=== PATIENT | female | born 1955 ===

== ENCOUNTER 2024-02-08 08:13 | Emergency (ER) | payer OTHER, SELFPAY ==
[2024-02-08 08:40] VITALS: BP 103/69; PULSE 84; RESP 16; TEMP 37; O2SAT 99; BMI 24.8
--- NOTE | 2024-02-08 09:14 | ED_ITS ---
HPI - General Adult General Chief complaint: Extremity Problem Stated complaint: L arm pain, L foot pain Time Seen by Provider: 02/08/24 09:08 Source: patient Mode of arrival: ambulatory Limitations: no limitations History of Present Illness ED Provider: Kylee John PA-C HPI narrative: Patient is a 68 year old assigned female at with a history of gout presenting to the emergency department today with left elbow and left foot pain. Patient states that 2 days ago she woke up with left elbow and left great toe pain that has not improved. Patient denies any dizziness, lightheadedness, abdominal pain, nausea, vomiting, fever, chills, blurry vision, double vision, loss of vision, chest pain, difficulty breathing, shortness of breath, back pain, night sweats, pain with urination, increased urinary frequency, increased urinary urgency, blood in her urine or stool, syncope or a near syncopal episode, recent trauma or falls, bowel incontinence, bladder incontinence, or any other complaints at this time. Onset (ago): day(s) (2) Location: left (knee and great toe) Relieving factors: none Exacerbating factors: none Associated symptoms: denies other symptoms Treatments prior to arrival: none Related Data Previous Rx's ?Medication ?Instructions ?Recorded naproxen 500 mg tablet 500 mg PO BID 7 days #14 tabs 02/08/24 prednisone 20 mg tablet 20 mg PO DAILY 7 days #7 tabs 02/08/24 Allergies Allergy/AdvReac Type Severity Reaction Status Date / Time No Known Allergies Allergy Verified 02/08/24 08:41 Review of Systems Constitutional: Constitutional: Reports no additional constitutional complaints, Denies chills, Denies fever(s) and Denies night sweats Eyes: Eyes: Reports no additional eye complaints, Denies blurry vision, Denies change in vision, Denies diplopia, Denies eye discharge, Denies loss of vision and Denies eye pain ENT: Denies dizziness Cardiovascular: Cardiovascular: Reports no additional cardiovascular complaints, Denies chest pain, Denies lightheadedness, Denies Loss of Consciousness and Denies dyspnea Respiratory: Respiratory: Reports no additional respiratory complaints and Denies dyspnea Gastrointestinal: Gastrointestinal: Reports no additional gastrointestinal complaints, Denies abdominal pain, Denies melena, Denies hematochezia, Denies change in bowel habits and Denies change in stool character Genitourinary: Genitourinary: Denies hematuria, Denies urinary frequency, Denies dysuria, Denies urinary incontinence, Denies urinary hesitancy and Denies urinary urgency Musculoskeletal: Musculoskeletal: Reports no additional musculoskeletal complaints, Denies numbness and Denies tingling Comments: left elbow pain and swelling left great toe pain and swelling Neurologic: Denies dizziness, Denies loss of vision, Denies numbness and Denies tingling Psychiatric: Psychiatric: Reports no additional psychiatric complaints Endocrine: Endocrine: Reports no additional endocrine complaints Hematologic/Lymphatic: Hematologic/Lymphatic: Reports no additional hematologic/lymphatic complaints Allergic/Immunologic: Allergic/Immunologic: Reports no additional allergic/immunologic complaints PMFSH Past Medical History Attestation statement: The following information was validated with the patient. Source: old records reviewed and nursing notes reviewed Social History Social History Advance Directives: No Advance Directives Information Provided: Yes Physical Exam ED Vital Signs: Vital Signs - 24 hr 02/08/24 08:40 02/08/24 09:51 Temperature 98.6 F 98.6 F Pulse Rate 84 84 Respiratory Rate 16 16 Blood Pressure 103/69 103/69 Pulse Oximetry 99 99 Oxygen Delivery Method Room Air Room Air BMI result Body Mass Index 24.8 Const General: cooperative, no acute distress, alert and awake Nutritional Appearance: well nourished Orientation/consciousness: patient oriented x3 Limitations: no limitations HENMT Head: Yes normal to inspection and Yes atraumatic Ears: hearing grossly normal bilaterally and external ears normal General nose exam: Normal external nose present, no nasal discharge noted and no epistaxis Face and sinus: Yes normal facial exam, No abrasion and No laceration Mouth: Normal oral and palatal mucosa present, no drooling and no muffled voice Eyes General: appearance normal, both eyes and all related structures Periorbital: periorbital findings normal Eyelids: Yes eyelids normal Conjunctivae: conjunctivae normal Pupils: Equal, round and reactive pupils present EOM: EOMs intact bilaterally Neck Neck: Yes normal visual inspection, Yes full ROM and Yes no lymphadenopathy Chest Chest palpation & inspection: normal inspection of the chest Resp Effort & Inspection: normal respiratory effort and able to speak in complete sentences GI Inspection: Yes normal to inspection Neuro General: patient oriented x3 and moves all extremities Cranial nerves: Yes Equal, round and reactive pupils present Cognition (Neuro): normal cognition Extrem Other: minimal swelling to the left elbow pain with left elbow ROM General: Yes full ROM and Yes capillary refill normal Psych Appearance: grossly normal Mental Status: mental status grossly normal Affect: normal affect Attitude: cooperative Thought process: Normal thought process present Thought content: Normal thought content present Insight: Good insight present (Psych) Medical Decision Making Medical Decision Making MDM Narrative: Patient is a 68 year old assigned female at with a history of gout presenting to the emergency department today with left elbow and left foot pain. Patient's physical exam was as noted in the physical exam portion of this note. Patient's clinical presentation is most consistent with gout. I explained my physical exam findings to the patient. [facility] I stressed the importance of the patient taking her medication as directed (either prescribed or as the over the counter packaging recommends). I stressed the importance of the patient following up with her primary care provider. I stressed the importance of the patient returning to the emergency department immediately if her symptoms were to worsen or if she were to develop any dizziness, shortness of breath, difficulty breathing, chest pain, blurry vision, loss of vision, nausea, vomiting, abdominal pain, fever, chills, back pain, or any other complaints. Patient verbalized agreement and understanding with this treatment plan and discharge. Differential Diagnosis Differential Diagnoses: The differential diagnosis associated with the presentation includes Gout OA RA Admission/Observation Consideration of admission/observation: Escalation of care including admission/observation considered Patient would have been admitted to the hospital had her clinical presentation warranted hospital admission. Prescription Management I considered prescription management with: Pain Medication (patient prescribed pain medication) Discharge Plan Discharge Clinical Impression: Gout Patient Disposition: Home, Self-Care Instructions: Low Purine Diet (ED), Gout (ED) Additional Instructions: Follow up with your primary care provider. Return to the emergency department immediately if your symptoms worsen or if you develop any dizziness, shortness of breath, difficulty breathing, chest pain, blurry vision, loss of vision, nausea, vomiting, abdominal pain, fever, chills, back pain, or any other complaints. Prescriptions: New prednisone 20 mg tablet 20 mg PO DAILY 7 Days Qty: 7 0RF naproxen 500 mg tablet 500 mg PO BID 7 Days Qty: 14 0RF Referrals: [facility] [Provider Group] (Call to establish and follow up with a primary care provider. If you already have a primary care provider, please follow up with them.) [facility] [Provider Group] (Call to establish and follow up with a primary care provider. If you already have a primary care provider, please follow up with them.) [facility] [Provider Group] (Call to establish and follow up with a primary care provider. If you already have a primary care provider, please follow up with them.) Interventions: ED Discharge Assessment Last Done: 02/08/24 09:51 Discharge Date/Time: 02/08/24 09:52 Print Language: Jordanian
--- NOTE | 2024-02-08 09:50 | PC.NURSE ---
PT WAS SEEN BY PROVIDER AND DISCHARGE INSTRUCTIONS WERE REVIEWED AND REFERRALS WERE MADE FOR PCP
[2024-02-08 09:51] VITALS: BP 103/69; PULSE 84; RESP 16; TEMP 37; O2SAT 99
== END 2024-02-08 09:52 | disposition home or self-care (01) ==
PROVIDERS: Emergency Provider Emergency Medicine
DX: M10.022 Idiopathic gout, left elbow (principal); M10.072 Idiopathic gout, left ankle and foot
CPT/HCPCS: 99282; 99283

== ENCOUNTER 2024-03-30 09:13 | Emergency (ER) | payer OTHER, SELFPAY ==
[2024-03-30] VITALS (7 sets, daily range): BP systolic 102–133; BP diastolic 58–76; PULSE 72–110; RESP 16–31; TEMP 36.6–37; O2SAT 94–100; BMI 28.0
--- NOTE | ~2024-03-30 | XR_ITS ---
EXAMINATION: XR CHEST CLINICAL INFORMATION: Shortness of breath COMPARISON: None available. TECHNIQUE: Frontal view of the chest was obtained. FINDINGS: The lungs are well-expanded and clear acute pneumonic process. Heart size and poor vascularity is normal. No gross bony abnormality seen. XR/XR chest 1V IMPRESSION: Unremarkable chest exam. Electronically signed by: Pascual Morales MD 03/30/2024 10:46 AM [facility]
--- NOTE | 2024-03-30 09:36 | ECG_ITS ---
Test Reason : SOB Blood Pressure : / mmHG Vent. Rate : 074 BPM Atrial Rate : 074 BPM P-R Int : 136 ms QRS Dur : 072 ms QT Int : 388 ms P-R-T Axes : 000 016 000 degrees QTc Int : 430 ms Poor data quality Normal sinus rhythm No previous ECGs available Referred By: Anjana Emerson Electronically Signed By:John Beck
[2024-03-30] MEDS: Albuterol Sulfate 2.5 MG, Albuterol/Iprat 2.5/0.5MG 3 ML 3 ML INHALE (09:44)
[2024-03-30 09:54] LABS: MANUAL DIFF FLAG NO
[2024-03-30] MEDS: methylPREDNISolone Sod Succ 125 MG/2 ML VIAL 60 MG IVPUSH (09:55)
[2024-03-30 09:57] LABS: Basophils Percent Auto 0.2 % (0-2); Eosinophils Percent Auto 0.8 % (0-4); Hemoglobin 13.5 g/dl (12.0-16.0); Imm Gran Abs Auto 0.01 X10*3/uL (0.00-0.03); Imm Gran Pct Auto 0.2 % (0.0-0.4); Lymphocytes Absolute Auto 1.4 X10*3/uL (1.2-4.9); Lymphocytes Percent Auto 26.9 % (20-40); Mean Corpuscular HGB Conc 35.5 g/dl (31.0-35.0); Mean Corpuscular Hemoglobin 32.9 pg (27.0-33.0); Mean Corpuscular Volume 92.7 fL (80.0-98.0); Mean Platelet Volume 9.3 fL (9.4-12.3); Monocytes Absolute Auto 0.4 X10*3/uL (0.1-1.2); Neutrophils Absolute Auto 3.4 x10*3/uL (2.0-8.3); Neutrophils Percent Auto 63.9 % (45-73); Platelet Count 171 X10*3/uL (160-400); Red Cell Distribution Width 11.9 % (11.0-16.0); White Blood Count 5.3 X10*3/uL (4.8-10.8)
[2024-03-30 10:03] LABS: INTERNATIONAL NORM RATIO 1.1 (0.9-1.1); Prothrombin Time 12.6 SEC (10.9-12.4)
--- NOTE | 2024-03-30 10:04 | ED.SOB ---
HPI - SOB/Dyspnea General Chief Complaint: Dyspnea Stated Complaint: SOB COUGH Time Seen by Provider: 03/30/24 09:32 Source: patient, EMS, RN notes reviewed and old records reviewed Mode of arrival: EMS History of Present Illness ED Provider: Anjana Emerson PA-C HPI Narrative: 68-year-old female with a past medical history of asthma presenting to ED via EMS from [facility] complaining of dry cough, SOB, and chest discomfort when coughing x 3 days. Also reports nausea and vomiting. Denies fever, abdominal pain, diarrhea/constipation, dysuria/hematuria, travel. Admits to multiple sick contacts in the house. Related Data Previous Rx's ?Medication ?Instructions ?Recorded naproxen 500 mg tablet 500 mg PO BID 7 days #14 tabs 02/08/24 prednisone 20 mg tablet 20 mg PO DAILY 7 days #7 tabs 02/08/24 Allergies Allergy/AdvReac Type Severity Reaction Status Date / Time acetaminophen [From Vicodin] Allergy Itching Verified 03/30/24 09:30 hydrocodone [From Vicodin] Allergy Itching Verified 03/30/24 09:30 Review of Systems Review of Systems: Yes all other systems are reviewed and are negative Constitutional: Constitutional: Reports as per [facility] Past Medical History Attestation statement: The following information was validated with the patient. Source: old records reviewed Social History Social History Advance Directives: No Advance Directives Information Provided: No Do you have a plan to hurt others: No Plan Physical Exam Vital Signs: Vital Signs: Last Vital Signs Temp 97.8 F 03/30/24 13:41 Pulse 72 03/30/24 13:41 Resp 16 03/30/24 13:41 BP 133/58 L 03/30/24 13:41 Pulse Ox 99 03/30/24 13:41 O2 Del Method Room Air 03/30/24 13:41 BMI result Body Mass Index 28.0 Const: General: cooperative, healthy appearing and no acute distress Orientation/consciousness: patient oriented x3 Limitations: no limitations HEENT: Head: Yes normal to inspection and Yes atraumatic Ears: hearing grossly normal bilaterally General nose exam: Normal external nose present Face and sinus: Yes normal facial exam Eyes: General: appearance normal, both eyes and all related structures EOM: EOMs intact bilaterally Neck: Neck: Yes normal visual inspection and Yes no meningeal signs Resp: Effort & Inspection: normal respiratory effort and no respiratory distress Auscultation: wheezes expiratory wheezes and throughout Cardio: Rate: regular rate Heart sounds: S1 normal heart sound present and S2 normal heart sound present GI: Inspection: Yes normal to inspection Palpation (GI): Soft to palpation, nontender, no guarding and not rigid Skin: Rashes: no rashes Wounds: no wounds Neuro: General: patient oriented x3, tone normal and no meningeal signs Cranial nerves: Yes CN's II-XII intact bilaterally Gait exam (Neuro): Normal gait present Extrem: General: Yes normal to inspection and Yes no pedal edema Course Course Course Narrative: -1139--labs reassuring. Troponin negative. Viral studies negative XR chest 1V IMPRESSION: Unremarkable chest exam. >1139--on re-evaluate radiation patient resting comfortably, satting 95% on RA. End expiratory wheeze appreciated. Will have Respiratory re-evaluate patient for additional treatment -1351--on re-evaluation lungs CTA. Patient is stable for discharge home at this time Results discussed with patient including worrisome signs and symptoms and strict return precautions, and when to return to the emergency department. They verbalized understanding and feel safe for discharge at this time. Medications Administered Discontinued Medications Generic Name Dose Route Start Last Admin Trade Name Freq PRN Reason Stop Dose Admin Albuterol Sulfate 2.5 mg/ 5 mg 03/30/24 11:41 03/30/24 11:46 Albuterol Sulfate 2.5 mg INHALE 03/30/24 11:42 5 mg ONCE ONE Administration Albuterol Sulfate 2.5 mg/ 0 mg 03/30/24 09:44 03/30/24 09:44 Albuterol/Ipratropium 3 ml INHALE 03/30/24 09:45 5 dose ONCE ONE Administration Methylprednisolone Sodium Succinate 60 mg 03/30/24 09:35 03/30/24 09:55 Methylprednisolone Sod Succ 125 Mg/2 Ml Vial IVPUSH 03/30/24 09:36 60 mg ONCE ONE Administration Medical Decision Making Medical Decision Making [facility] Narrative: 68-year-old female with a past medical history of asthma presenting to ED via EMS from [facility] complaining of dry cough, SOB, and chest discomfort when coughing x 3 days. On exam vital signs stable, NAD, nontoxic appearing, diffuse expiratory wheeze appreciated, no pitting edema. Concern for asthma exacerbation vs viral illness vs pneumonia. Lower suspicion for acute ACS/PE or DVT at this time. Lower suspicion for CHF. Plan: EKG, labs, CXR, viral studies, IV Solu-Medrol, ED bronchodilator protocol, re-evaluate Please refer to course for remaining clinical decision making, interpretation of labs/imaging results, and discussions with consultants and/or family members. Differential Diagnosis Differential Diagnoses: The differential diagnosis associated with the presentation includes As above Admission/Observation Consideration of admission/observation: Escalation of care including admission/observation considered Lab Data MDM Lab Attestation statement: I reviewed the patient's lab results. 03/30/24 09:48 03/30/24 09:48 Labs: Lab Results 03/30/24 Range/Units 09:48 WBC 5.3 (4.8-10.8) X10*3/uL RBC 4.10 L (4.20-5.50) X10*6/uL Hgb 13.5 (12.0-16.0) g/dl Hct 38.0 (37.0-47.0) % MCV 92.7 (80.0-98.0) fL MCH 32.9 (27.0-33.0) pg MCHC 35.5 H (31.0-35.0) g/dl RDW 11.9 (11.0-16.0) % Plt Count 171 (160-400) X10*3/uL MPV 9.3 L (9.4-12.3) fL Immature Gran % (Auto) 0.2 (0.0-0.4) % Neut % (Auto) 63.9 (45-73) % Lymph % (Auto) 26.9 (20-40) % [place] % (Auto) 8.0 (2-11) % Eos % (Auto) 0.8 (0-4) % Baso % (Auto) 0.2 (0-2) % Lymph # (Auto) 1.4 (1.2-4.9) X10*3/uL [place] # (Auto) 0.4 (0.1-1.2) X10*3/uL Eos # (Auto) 0.0 (0.0-0.4) X10*3/uL Baso # (Auto) 0.0 (0.0-0.2) X10*3/uL Abs Immat Gran (auto) 0.01 (0.00-0.03) X10*3/uL Absolute Neuts (auto) 3.4 (2.0-8.3) x10*3/uL Absolute Nucleated RBC 0.000 (0.0-0.012) X10*3/uL Nucleated RBC % (auto) 0.0 (0.0-0.2) /100WBC PT 12.6 H (10.9-12.4) SEC INR 1.1 (0.9-1.1) Sodium 144 (135-145) mmol/L Potassium 3.6 (3.3-5.1) mmol/L Chloride 110 H (96-108) mmol/L Carbon Dioxide 23 (22-29) mmol/L Anion Gap 15 (12-20) BUN 7 L (9-16) mg/dL Creatinine 0.74 (0.5-1.4) mg/dL Estim Creat Clear Calc 69.0 Estimated GFR > 60 Random Glucose 138 H (60-115) mg/dL Calcium 9.2 (8.4-10.2) mg/dL Magnesium 1.6 (1.6-2.6) mg/dL Total Bilirubin 0.5 (0.0-1.0) mg/dL Direct Bilirubin 0.1 (0.0-0.5) mg/dL AST 25 (5-31) U/L ALT 17 (0-31) U/L Alkaline Phosphatase 77 (39-117) U/L Troponin I High Sens 3.4 (<3.5-17.0) ng/L B-Natriuretic Peptide 40 (<100) pg/mL Total Protein 7.1 (6.5-8.0) g/dL Albumin 3.9 (3.5-5.0) g/dL Influenza Type A (PCR) NEGATIVE (Negative) Influenza Type B (PCR) NEGATIVE (Negative) RSV RNA Qual (PCR) NEGATIVE (Negative) SARS-CoV-2 RNA (RT-PCR) NEGATIVE (Negative) Independent Interpretation I performed an independent interpretation of an: EKG (My interpretation EKG normal sinus rhythm rate of 74. QRS 72. QTC 430. No previous to compare) and Plain X-Ray Radiology Impression Discussion of test interpretation with radiology: I have reviewed the radiologist's reading. Independent Historian Clinical information obtained from an independent historian. History obtained from or confirmed by: EMS External Record Review External record reviewed: Inpatient record, Office record, Outpatient record, Prior outpatient labs, Prior outpatient radiology, Primary care record and Outside ED record Tests considered The following testing was considered but not selected: As above Prescription Management I considered prescription management with: Pain Medication and Antibiotic Chronic Conditions Patient?s care impacted by: Other Social Determinants Patient?s care significantly limited by Social Determinants of Health including: Inadequate housing, Low income, Alcoholism and drug addiction in family, Problems related to primary support group, Unemployment, Problems related to employment and Other Social Determinant of Health Discharge Plan Discharge Clinical Impression: Asthma with exacerbation Patient Disposition: Still a Patient Prescriptions: No Action prednisone 20 mg tablet 20 mg PO DAILY 7 Days Qty: 7 0RF naproxen 500 mg tablet 500 mg PO BID 7 Days Qty: 14 0RF Print Language: [place] Citizen
[2024-03-30 10:11] LABS: Alanine Aminotransferase 17 U/L (0-31); Albumin Level 3.9 g/dL (3.5-5.0); Alkaline Phosphatase 77 U/L (39-117); Anion Gap 15 (12-20); Aspartate Amino Transferase 25 U/L (5-31); Bilirubin Direct 0.1 mg/dL (0.0-0.5); Bilirubin Total 0.5 mg/dL (0.0-1.0); Blood Urea Nitrogen 7 mg/dL (9-16); Calcium 9.2 mg/dL (8.4-10.2); Carbon Dioxide 23 mmol/L (22-29); Chloride 110 mmol/L (96-108); Estimated Glomerular Filt Rate > 60; Glucose Random 138 mg/dL (60-115); Magnesium 1.6 mg/dL (1.6-2.6); Potassium 3.6 mmol/L (3.3-5.1); Sodium 144 mmol/L (135-145); Total Protein 7.1 g/dL (6.5-8.0)
[2024-03-30 10:16] LABS: B Type Natriuretic Peptide 40 pg/mL (<100)
[2024-03-30 10:19] LABS: Troponin-I High Sensitivity 3.4 ng/L (<3.5-17.0)
[2024-03-30 10:44] LABS: Influenza A PCR NEGATIVE (Negative); Influenza B PCR NEGATIVE (Negative); Resp Syncy Virus RNA Qual PCR NEGATIVE (Negative); SARS COV2 PCR INHOUSE NEGATIVE (Negative)
[2024-03-30] MEDS: Albuterol Sulfate 2.5 MG, Albuterol Sulfate (0.083%) 2.5 MG 5 MG INHALE (11:46)
--- NOTE | 2024-03-30 13:20 | PC.NURSE ---
patient given sandwich and water
== END 2024-03-30 14:02 | disposition home or self-care (01) ==
PROVIDERS: Physician Assistant; Emergency Provider Emergency Medicine
DX: J45.901 Unspecified asthma with (acute) exacerbation (principal); R06.02 Shortness of breath; R05.9 Cough, unspecified; Z03.818 Encounter for observation for suspected exposure to other biological agents ruled out; Z79.899 Other long term (current) drug therapy
CPT/HCPCS: 0241U; 36415; 71045; 80048; 80076; 83735; 83880; 84484; 85025; 85610; 93005; 94640; 96374; 99284; J2919

== ENCOUNTER → 2024-03-30 09:36 | Outpatient (BNV) | payer OTHER, SELFPAY | PROVIDERS: Emergency Provider Emergency Medicine; Visit Provider Internal Medicine Cardiovascular Disease | DX: R06.02 Shortness of breath (principal) | CPT/HCPCS: 93010 ==

== ENCOUNTER 2024-05-25 08:25 | Emergency (ER) | payer MEDICARE, MEDICAID, SELFPAY ==
--- NOTE | ~2024-05-25 | XR_ITS ---
CLINICAL HISTORY: sob 2 view chest x-ray Comparison: None Findings: The lungs are clear. Normal size heart. No acute fracture. IMPRESSION: 1. No acute findings. This document has been electronically signed by: Immanuel Chaney MD on 05/25/2024 09:20:43
[2024-05-25 08:41] VITALS: BP 126/75; PULSE 129; RESP 24; TEMP 37.2; O2SAT 98; BMI 28.7
[2024-05-25] MEDS: Ibuprofen 600 MG TABLET PO (09:25)
[2024-05-25 09:40] LABS: MANUAL DIFF FLAG NO
[2024-05-25 09:48] LABS: Basophils Percent Auto 0.1 % (0-2); Eosinophils Percent Auto 0.1 % (0-4); Hemoglobin 13.6 g/dl (12.0-16.0); Imm Gran Abs Auto 0.03 X10*3/uL (0.00-0.03); Imm Gran Pct Auto 0.4 % (0.0-0.4); Lymphocytes Absolute Auto 0.4 X10*3/uL (1.2-4.9); Lymphocytes Percent Auto 5.7 % (20-40); Mean Corpuscular Hemoglobin 31.3 pg (27.0-33.0); Mean Platelet Volume 9.1 fL (9.4-12.3); Monocytes Absolute Auto 0.6 X10*3/uL (0.1-1.2); Monocytes Percent Auto 7.7 % (2-11); Neutrophils Absolute Auto 6.3 x10*3/uL (2.0-8.3); Platelet Count 182 X10*3/uL (160-400); Red Blood Count 4.35 X10*6/uL (4.20-5.50); Red Cell Distribution Width 12.3 % (11.0-16.0); White Blood Count 7.3 X10*3/uL (4.8-10.8)
[2024-05-25 09:55] LABS: Alanine Aminotransferase 16 U/L (0-31); Albumin Level 4.1 g/dL (3.5-5.0); Alkaline Phosphatase 87 U/L (39-117); Anion Gap 12 (12-20); Aspartate Amino Transferase 29 U/L (5-31); Bilirubin Total 0.7 mg/dL (0.0-1.0); Blood Urea Nitrogen 7 mg/dL (9-16); Calcium 9.1 mg/dL (8.4-10.2); Carbon Dioxide 24 mmol/L (22-29); Chloride 106 mmol/L (96-108); Creatinine Clr Calc Pharmacy 67.9; Estimated Glomerular Filt Rate > 60; Glucose Random 99 mg/dL (60-115); Potassium 3.7 mmol/L (3.3-5.1); Sodium 138 mmol/L (135-145); Total Protein 7.6 g/dL (6.5-8.0)
[2024-05-25 10:30] LABS: Influenza A PCR POSITIVE (Negative); Influenza B PCR NEGATIVE (Negative); Resp Syncy Virus RNA Qual PCR NEGATIVE (Negative); SARS COV2 PCR INHOUSE NEGATIVE (Negative)
[2024-05-25 11:47] VITALS: PULSE 108; RESP 20; O2SAT 95
[2024-05-25] MEDS: Albuterol/Iprat 2.5/0.5MG 3 ML AMPUL.NEB INHALE (11:55)
--- NOTE | 2024-05-25 11:55 | ED.URI ---
HPI - URI/Sore Throat General Chief Complaint: Upper Respiratory Symptoms Stated Complaint: aching body Time Seen by Provider: 05/25/24 11:07 Source: patient, RN notes reviewed and old records reviewed Mode of arrival: ambulatory History of Present Illness ED Provider: Anjana Emerson PA-C HPI Narrative: 69-year-old female with a past medical history of asthma, presenting to the ED complaining of myalgias, congestion, cough, SOB, and chest discomfort with cough x 2 days. States currently lives in sober house with 30 other people, multiple potential sick contacts. Denies known fever, chills, sore throat, difficulty or inability to swallow. Has been using inhaler at home without relief. Denies travel Related Data Previous Rx's ?Medication ?Instructions ?Recorded naproxen 500 mg tablet 500 mg PO BID 7 days #14 tabs 02/08/24 prednisone 20 mg tablet 20 mg PO DAILY 7 days #7 tabs 02/08/24 albuterol sulfate 90 mcg/actuation 2 puff inhalation Q4-6H PRN 03/30/24 aerosol inhaler shortness of breath or wheezing #6.7 grams prednisone 20 mg tablet 40 mg (2 x 20 mg) PO DAILY 5 days 03/30/24 #10 tabs Allergies Allergy/AdvReac Type Severity Reaction Status Date / Time acetaminophen [From Vicodin] Allergy Itching Verified 05/25/24 08:44 hydrocodone [From Vicodin] Allergy Itching Verified 05/25/24 08:44 Review of Systems Review of Systems: Yes all other systems are reviewed and are negative Constitutional: Constitutional: Reports as per [facility] Past Medical History Attestation statement: The following information was validated with the patient. Source: old records reviewed Social History Social History Advance Directives: No Advance Directives Information Provided: Yes Physical Exam Vital Signs: Vital Signs: Last Vital Signs Temp 98.9 F 05/25/24 08:41 Pulse 108 H 05/25/24 11:47 Resp 20 05/25/24 11:47 BP 126/75 05/25/24 08:41 Pulse Ox 98 05/25/24 08:41 O2 Del Method Room Air 05/25/24 08:41 BMI result Body Mass Index 28.7 Const: General: cooperative, healthy appearing and no acute distress Orientation/consciousness: patient oriented x3 Limitations: no limitations HEENT: Head: Yes normal to inspection and Yes atraumatic Ears: hearing grossly normal bilaterally General nose exam: Normal external nose present Face and sinus: Yes normal facial exam Mouth: Normal oral and palatal mucosa present and no drooling Throat: Yes posterior oropharynx normal, Yes uvula midline, No peritonsillar mass, No uvula laterally displaced and No uvular edema Eyes: General: appearance normal, both eyes and all related structures EOM: EOMs intact bilaterally Neck: Neck: Yes normal visual inspection and Yes no meningeal signs Resp: Effort & Inspection: normal respiratory effort, not labored, no respiratory distress and no stridor Auscultation: wheezes expiratory wheezes and lower bilaterally Cardio: Rate: regular rate and tachycardic Heart sounds: S1 normal heart sound present and S2 normal heart sound present Skin: Rashes: no rashes Wounds: no wounds Neuro: General: patient oriented x3, tone normal and no meningeal signs Cranial nerves: Yes CN's II-XII intact bilaterally Gait exam (Neuro): Normal gait present Extrem: General: Yes normal to inspection Course Course Course Narrative: -1201--labs reassuring -influenza a positive -CXR unremarkable -1248--troponin negative, mi unlikely Results discussed with patient including worrisome signs and symptoms and strict return precautions, and when to return to the emergency department. They verbalized understanding and feel safe for discharge at this time. Medications Administered Discontinued Medications Generic Name Dose Route Start Last Admin Trade Name Freq PRN Reason Stop Dose Admin Albuterol/Ipratropium 3 ml 05/25/24 11:45 05/25/24 11:55 Albuterol/Iprat 2.5/0.5mg 3 Ml Ampul.Neb INHALE 05/25/24 11:46 3 ml ONCE ONE Administration Ibuprofen 600 mg 05/25/24 09:05 05/25/24 09:25 Ibuprofen 600 Mg Tablet PO 05/25/24 09:06 600 mg ONCE ONE Administration Prednisone 40 mg 05/25/24 11:26 05/25/24 12:48 Prednisone 20 Mg Tablet PO 05/25/24 11:27 40 mg ONCE ONE Administration Medical Decision Making Medical Decision Making [facility] Narrative: 69-year-old female with a past medical history of asthma, presenting to the ED complaining of myalgias, congestion, cough, SOB, and chest discomfort with cough x 2 days. 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 Concern for viral illness vs asthma exacerbation vs pneumonia or bronchitis. Low suspicion for ACS/PE or DVT at this time. 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 Lower suspicion for dissection Plan: EKG, labs ordered in triage, CXR, viral studies, ED bronch protocol Please refer to course for remaining clinical decision making, interpretation of labs/imaging results, and discussions with consultants and/or family members. Differential Diagnosis Differential Diagnoses: The differential diagnosis associated with the presentation includes As above Admission/Observation Consideration of admission/observation: Escalation of care including admission/observation considered Lab Data MDM Lab Attestation statement: I reviewed the patient's lab results. 05/25/24 09:36 05/25/24 09:36 Labs: Lab Results 05/25/24 Range/Units 09:36 WBC 7.3 (4.8-10.8) X10*3/uL RBC 4.35 (4.20-5.50) X10*6/uL Hgb 13.6 (12.0-16.0) g/dl Hct 40.0 (37.0-47.0) % MCV 92.0 (80.0-98.0) fL MCH 31.3 (27.0-33.0) pg MCHC 34.0 (31.0-35.0) g/dl RDW 12.3 (11.0-16.0) % Plt Count 182 (160-400) X10*3/uL MPV 9.1 L (9.4-12.3) fL Immature Gran % (Auto) 0.4 (0.0-0.4) % Neut % (Auto) 86.0 H (45-73) % Lymph % (Auto) 5.7 L (20-40) % [place] % (Auto) 7.7 (2-11) % Eos % (Auto) 0.1 (0-4) % Baso % (Auto) 0.1 (0-2) % Lymph # (Auto) 0.4 L (1.2-4.9) X10*3/uL [place] # (Auto) 0.6 (0.1-1.2) X10*3/uL Eos # (Auto) 0.0 (0.0-0.4) X10*3/uL Baso # (Auto) 0.0 (0.0-0.2) X10*3/uL Abs Immat Gran (auto) 0.03 (0.00-0.03) X10*3/uL Absolute Neuts (auto) 6.3 (2.0-8.3) x10*3/uL Absolute Nucleated RBC 0.000 (0.0-0.012) X10*3/uL Nucleated RBC % (auto) 0.0 (0.0-0.2) /100WBC Sodium 138 (135-145) mmol/L Potassium 3.7 (3.3-5.1) mmol/L Chloride 106 (96-108) mmol/L Carbon Dioxide 24 (22-29) mmol/L Anion Gap 12 (12-20) BUN 7 L (9-16) mg/dL Creatinine 0.75 (0.5-1.4) mg/dL Estim Creat Clear Calc 67.9 Estimated GFR > 60 Random Glucose 99 (60-115) mg/dL Calcium 9.1 (8.4-10.2) mg/dL Total Bilirubin 0.7 (0.0-1.0) mg/dL AST 29 (5-31) U/L ALT 16 (0-31) U/L Alkaline Phosphatase 87 (39-117) U/L Troponin I High Sens 2.9 (<3.5-17.0) ng/L Total Protein 7.6 (6.5-8.0) g/dL Albumin 4.1 (3.5-5.0) g/dL Influenza Type A (PCR) POSITIVE A (Negative) Influenza Type B (PCR) NEGATIVE (Negative) RSV RNA Qual (PCR) NEGATIVE (Negative) SARS-CoV-2 RNA (RT-PCR) NEGATIVE (Negative) Independent Interpretation I performed an independent interpretation of an: EKG (My interpretation EKG sinus tachycardia rate of 126. [place] interval 144. QTC 402. No STEMI. Nonspecific change in ST segment in inferior leads when compared to prior) and Plain X-Ray Radiology Impression Discussion of test interpretation with radiology: I have reviewed the radiologist's reading. External Record Review External record reviewed: Inpatient record, Office record, Outpatient record, Prior outpatient labs, Prior outpatient radiology, Primary care record and Outside ED record Tests considered The following testing was considered but not selected: As above Prescription Management I considered prescription management with: Pain Medication, Antibiotic and Other Chronic Conditions Patient?s care impacted by: Other (asthma) Social Determinants Patient?s care significantly limited by Social Determinants of Health including: Other Social Determinant of Health Discharge Plan Discharge Clinical Impression: Influenza A Patient Disposition: Home, Self-Care Prescriptions: No Action prednisone 20 mg tablet 40 mg PO DAILY 5 Days Qty: 10 0RF albuterol sulfate 90 mcg/actuation HFA aerosol inhaler 2 puff inhalation Q4-6H PRN (Reason: shortness of breath or wheezing) Qty: 6.7 0RF prednisone 20 mg tablet 20 mg PO DAILY 7 Days Qty: 7 0RF naproxen 500 mg tablet 500 mg PO BID 7 Days Qty: 14 0RF Print Language: Hebrew
--- NOTE | 2024-05-25 12:01 | ECG_ITS ---
Test Reason : TACHYCARDIA Blood Pressure : / mmHG Vent. Rate : 126 BPM Atrial Rate : 126 BPM P-R Int : 144 ms QRS Dur : 074 ms QT Int : 278 ms P-R-T Axes : 066 039 023 degrees QTc Int : 402 ms Sinus tachycardia Nonspecific T wave abnormality Abnormal ECG When compared with ECG of 30-MAR-2024 09:48, Vent. rate has increased BY 52 BPM Referred By: Anjana Emerson Electronically Signed By:BHAKTI COHEN
[2024-05-25 12:30] LABS: Troponin-I High Sensitivity 2.9 ng/L (<3.5-17.0)
[2024-05-25] MEDS: predniSONE 20 MG TABLET 40 MG PO (12:48)
[2024-05-25 13:18] VITALS: BP 00/00; PULSE 108; RESP 20; TEMP -17.7; TEMP 0
== END 2024-05-25 13:18 | disposition home or self-care (01) ==
PROVIDERS: Physician Assistant; Emergency Provider Emergency Medicine
DX: M79.10 Myalgia, unspecified site (principal); R05.9 Cough, unspecified; R06.02 Shortness of breath; R07.89 Other chest pain; R00.0 Tachycardia, unspecified; Z03.818 Encounter for observation for suspected exposure to other biological agents ruled out; Z79.899 Other long term (current) drug therapy
CPT/HCPCS: 0241U; 71046; 80053; 84484; 85025; 93005; 94640; 99284

== ENCOUNTER → 2024-05-25 08:48 | Outpatient (BNV) | payer OTHER, SELFPAY | PROVIDERS: Visit Provider Specialist | DX: R06.02 Shortness of breath (principal) | CPT/HCPCS: 71046 ==

== ENCOUNTER → 2024-05-25 12:01 | Outpatient (BNV) | payer MEDICARE, MEDICAID, SELFPAY | PROVIDERS: Emergency Provider Emergency Medicine; Visit Provider Internal Medicine | DX: R94.31 Abnormal electrocardiogram [ECG] [EKG] (principal) | CPT/HCPCS: 93010 ==

== ENCOUNTER 2024-06-04 08:59 | Emergency (ER) | payer MEDICARE, MEDICAID, SELFPAY ==
--- NOTE | ~2024-06-04 | XR_ITS ---
EXAMINATION: XR ELBOW 1-2 VIEWS LEFT HISTORY: pain COMPARISON: There are no prior studies available for comparison. FINDINGS: Four views of the left elbow are submitted. Osseous mineralization is normal. There is no fracture or dislocation. The joint spaces are preserved. The soft tissues are unremarkable. XR/XR elbow LT 2V IMPRESSION: Unremarkable examination of the left elbow. Electronically signed by: Riki Desai MD 06/04/2024 10:07 AM [facility]
[2024-06-04 09:20] VITALS: BP 120/87; PULSE 89; RESP 18; TEMP 36.8; O2SAT 93; BMI 22.1
--- NOTE | 2024-06-04 11:41 | ED_ITS ---
HPI - General Adult General Chief complaint: Extremity Problem Stated complaint: L Elbow Swelling Time Seen by Provider: 06/04/24 11:34 Source: patient Mode of arrival: ambulatory Limitations: no limitations History of Present Illness ED Provider: Kylee John PA-C HPI narrative: Patient is a 68 year old assigned female at with a history of gout presenting to the emergency department today with left elbow. Patient states that this morning she woke up with left elbow pain. Patient denies any dizziness, lightheadedness, abdominal pain, nausea, vomiting, fever, chills, blurry vision, double vision, loss of vision, chest pain, difficulty breathing, shortness of breath, back pain, night sweats, pain with urination, increased urinary frequency, increased urinary urgency, blood in her urine or stool, syncope or a near syncopal episode, recent trauma or falls, bowel incontinence, bladder incontinence, or any other complaints at this time. Onset (ago): hour(s) Location: left and upper extremity Relieving factors: none Exacerbating factors: none Associated symptoms: denies other symptoms Treatments prior to arrival: none Related Data Previous Rx's ?Medication ?Instructions ?Recorded naproxen 500 mg tablet 500 mg PO BID 7 days #14 tabs 02/08/24 prednisone 20 mg tablet 20 mg PO DAILY 7 days #7 tabs 02/08/24 albuterol sulfate 90 mcg/actuation 2 puff inhalation Q4-6H PRN 03/30/24 aerosol inhaler shortness of breath or wheezing #6.7 grams prednisone 20 mg tablet 40 mg (2 x 20 mg) PO DAILY 5 days 03/30/24 #10 tabs fluticasone propionate 50 2 spray intranasal DAILY #16 grams 05/25/24 mcg/actuation nasal spray,suspension (Flonase Allergy Relief) prednisone 20 mg tablet 40 mg (2 x 20 mg) PO DAILY 5 days 05/25/24 #10 tabs naproxen 500 mg tablet 500 mg PO BID 7 days #14 tabs 06/04/24 omeprazole 40 mg capsule,delayed 40 mg PO DAILY #7 caps 06/04/24 release prednisone 20 mg tablet See Rx Instructions .Route 06/04/24 .COMPLEX 12 days #26 tabs Allergies Allergy/AdvReac Type Severity Reaction Status Date / Time acetaminophen [From Vicodin] Allergy Itching Verified 01/15/25 09:21 hydrocodone [From Vicodin] Allergy Itching Verified 06/04/24 09:21 Review of Systems Constitutional: Constitutional: Reports no additional constitutional complaints, Reports chills, Reports fever(s) and Denies night sweats Eyes: Eyes: Reports no additional eye complaints, Denies blurry vision, Denies change in vision, Denies diplopia, Denies eye discharge, Denies loss of vision and Denies eye pain ENT: Denies dizziness Cardiovascular: Cardiovascular: Reports no additional cardiovascular complaints, Denies chest pain, Denies lightheadedness, Denies Loss of Consci ousness and Denies dyspnea Respiratory: Respiratory: Reports no additional respiratory complaints and Denies dyspnea Gastrointestinal: Gastrointestinal: Reports no additional gastrointestinal complaints, Denies abdominal pain, Denies melena, Denies hematochezia, Denies change in bowel habits and Denies change in stool character Genitourinary: Genitourinary: Denies hematuria, Denies urinary frequency, Denies dysuria, Denies urinary incontinence, Denies urinary hesitancy and Denies urinary urgency Musculoskeletal: Musculoskeletal: Reports no additional musculoskeletal complaints, Denies numbness and Denies tingling Comments: left elbow pain Neurologic: Denies dizziness, Denies loss of vision, Denies numbness and Denies tingling Psychiatric: Psychiatric: Reports no additional psychiatric complaints Endocrine: Endocrine: Reports no additional endocrine complaints Hematologic/Lymphatic: Hematologic/Lymphatic: Reports no additional hematologic/lymphatic complaints Allergic/Immunologic: Allergic/Immunologic: Reports no additional allergic/immunologic complaints PMFSH Past Medical History Attestation statement: The following information was validated with the patient. Source: old records reviewed and nursing notes reviewed Social History Social History Advance Directives: No Advance Directives Information Provided: Yes Do you have a plan to hurt others: No Plan Physical Exam ED Vital Signs: Vital Signs - 24 hr 06/04/24 09:20 06/04/24 12:03 06/04/24 13:15 Temperature 98.2 F 97.2 F Pulse Rate 89 89 108 H Respiratory Rate 18 18 15 Blood Pressure 120/87 127/59 L Pulse Oximetry 93 94 Oxygen Delivery Method Room Air Room Air 06/04/24 14:01 Temperature 97.2 F Pulse Rate 108 H Respiratory Rate 15 Blood Pressure 127/59 L Pulse Oximetry 94 Oxygen Delivery Method Room Air BMI result Body Mass Index 22.1 Const General: cooperative, no acute distress, alert and awake Nutritional Appearance: well nourished Orientation/consciousness: patient oriented x3 Limitations: no limitations HENMT Head: Yes normal to inspection and Yes atraumatic Ears: hearing grossly normal bilaterally and external ears normal General nose exam: Normal external nose present, no nasal discharge noted and no epistaxis Face and sinus: Yes normal facial exam, No abrasion and No laceration Mouth: Normal oral and palatal mucosa present, no drooling and no muffled voice Eyes General: appearance normal, both eyes and all related structures Periorbital: periorbital findings normal Eyelids: Yes eyelids normal Conjunctivae: conjunctivae normal Pupils: Equal, round and reactive pupils present EOM: EOMs intact bilaterally Neck Neck: Yes normal visual inspection, Yes full ROM and Yes no lymphadenopathy Chest Chest palpation & inspection: normal inspection of the chest Resp Effort & Inspection: normal respiratory effort and able to speak in complete sentences Auscultation: wheezes scattered wheezes and throughout GI Inspection: Yes normal to inspection Neuro General: patient oriented x3 and moves all extremities Cranial nerves: Yes Equal, round and reactive pupils present Cognition (Neuro): normal cognition Extrem General: Yes full ROM and Yes capillary refill normal Left upper extremity: elbow/forearm Details: tenderness and swelling Psych Appearance: grossly normal Mental Status: mental status grossly normal Affect: normal affect Attitude: cooperative Thought process: Normal thought process present Thought content: Normal thought content present Insight: Good insight present (Psych) Medications Administered Discontinued Medications Generic Name Dose Route Start Last Admin Trade Name Freq PRN Reason Stop Dose Admin Albuterol Sulfate 2.5 mg/ 0 mg 06/04/24 11:59 06/04/24 12:02 Albuterol/Ipratropium 3 ml INHALE 06/04/24 12:00 1 dose ONCE ONE Administration Ketorolac Tromethamine 15 mg 06/04/24 11:53 06/04/24 13:10 Ketorolac Tromethamine 15 Mg/Ml Vial IM 06/04/24 11:54 15 mg ONCE ONE Administration Methylprednisolone Sodium Succinate 60 mg 06/04/24 11:50 06/04/24 13:10 Methylprednisolone Sod Succ 125 Mg/2 Ml Vial IM 06/04/24 11:51 60 mg ONCE ONE Administration Medical Decision Making Medical Decision Making MDM Narrative: Patient is a 69 year old assigned female at with a history of gout presenting to the emergency department today with left elbow pain. Patient's physical exam showed an erythematous and swollen left elbow with minimal wheezes throughout. Patient was recently diagnosed with influenza. Patient's left elbow x-ray showed no acute process. Patient's clinical presentation is most consistent with a gout flare and wheezing. I explained my physical exam findings as well as all test results to the patient. I answered all questions asked by the patient. I stressed the importance of the patient taking her medication as directed (either prescribed or as the over the counter packaging recommends). I stressed the importance of the patient following up with her primary care provider. I stressed the importance of the patient returning to the emergency department immediately if her symptoms were to worsen or if she were to develop any dizziness, shortness of breath, difficulty breathing, chest pain, blurry vision, loss of vision, nausea, vomiting, abdominal pain, fever, chills, back pain, or any other complaints. Patient verbalized agreement and understanding with this treatment plan and discharge. Differential Diagnosis Differential Diagnoses: The differential diagnosis associated with the presentation includes Gout Wheezing Admission/Observation Consideration of admission/observation: Escalation of care including admission/observation considered Patient would have been admitted to the hospital had her work up had any findings where hospital admission was appropriate and her clinical presentation warranted hospital admission. Lab Data [facility] Lab Attestation statement: I reviewed the patient's lab results. My interpretation of these studies and their corresponding values is that they are grossly normal. Labs: Lab Results 06/04/24 Range/Units 11:41 Influenza Type A (PCR) NEGATIVE (Negative) Influenza Type B (PCR) NEGATIVE (Negative) RSV RNA Qual (PCR) NEGATIVE (Negative) SARS-CoV-2 RNA (RT-PCR) NEGATIVE (Negative) Independent Interpretation I performed an independent interpretation of an: Plain X-Ray Interpretation: My interpretation is in agreement with the radiologist's impression of this imaging study. EXAMINATION: XR ELBOW 1-2 VIEWS LEFT HISTORY: pain COMPARISON: There are no prior studies available for comparison. FINDINGS: Four views of the left elbow are submitted. Osseous mineralization is normal. There is no fracture or dislocation. The joint spaces are preserved. The soft tissues are unremarkable. XR/XR elbow LT 2V IMPRESSION: Unremarkable examination of the left elbow. Electronically signed by: Riki Desai MD 06/04/2024 10:07 AM [facility] Dictated By: Riki Desai MD Signed By: Electronically signed by Riki Desai MD 06/04/24 1007 Radiology Impression Discussion of test interpretation with radiology: I have reviewed the radiologist's reading. Discharge Plan Discharge Clinical Impression: Gout Patient Disposition: Home, Self-Care Instructions: Low Purine Diet (ED), Gout (ED) Additional Instructions: Follow up with your primary care provider. Return to the emergency department immediately if your symptoms worsen or if you develop any dizziness, shortness of breath, difficulty breathing, chest pain, blurry vision, loss of vision, nausea, vomiting, abdominal pain, fever, chills, back pain, or any other complaints. Prescriptions: New prednisone 20 mg tablet See Rx Instructions .ROUTE .COMPLEX 12 Days Qty: 26 0RF Rx Instructions: 20 mg orally, Take 3 tablets for 5 days THEN; Take 2 tablets for 4 days THEN; Take 1 tablet for 3 days naproxen 500 mg tablet 500 mg PO BID 7 Days Qty: 14 0RF omeprazole 40 mg capsule,delayed release(DR/EC) 40 mg PO DAILY Qty: 7 0RF No Action prednisone 20 mg tablet 40 mg PO DAILY 5 Days Qty: 10 0RF albuterol sulfate 90 mcg/actuation HFA aerosol inhaler 2 puff inhalation Q4-6H PRN (Reason: shortness of breath or wheezing) Qty: 6.7 0RF prednisone 20 mg tablet 40 mg PO DAILY 5 Days Qty: 10 0RF fluticasone propionate [Flonase Allergy Relief] 50 mcg/actuation spray,suspension 2 spray intranasal DAILY Qty: 16 0RF Rx Instructions: administer into each nostril prednisone 20 mg tablet 20 mg PO DAILY 7 Days Qty: 7 0RF naproxen 500 mg tablet 500 mg PO BID 7 Days Qty: 14 0RF [place] [facility] [place]] (Call to establish and follow up with a primary care provider. If you already have a primary care provider, please follow up with them.) [facility] [place] [facility] [Provider Group] (Call to establish and follow up with a primary care provider. If you already have a primary care provider, please follow up with them.) [facility] [place] [facility] [Provider Group] (Call to establish and follow up with a primary care provider. If you already have a primary care provider, please follow up with them.) [facility] [place] [facility] [Provider Group] (Call to establish and follow up with an orthopedic provider for your gout. ) Interventions: ED Discharge Assessment Last Done: 06/04/24 14:01 Discharge Date/Time: 06/04/24 14:02 Print Language: Faroese
[2024-06-04] MEDS: Albuterol Sulfate 2.5 MG, Albuterol/Iprat 2.5/0.5MG 3 ML 3 ML INHALE (12:02)
[2024-06-04 12:03] VITALS: PULSE 89; RESP 18; O2SAT 95
[2024-06-04 13:04] LABS: Influenza A PCR NEGATIVE (Negative); Influenza B PCR NEGATIVE (Negative); Resp Syncy Virus RNA Qual PCR NEGATIVE (Negative); SARS COV2 PCR INHOUSE NEGATIVE (Negative)
[2024-06-04] MEDS: methylPREDNISolone Sod Succ 125 MG/2 ML VIAL 60 MG IM (13:10)
[2024-06-04] MEDS: Ketorolac Tromethamine 15 MG/ML VIAL IM (13:10)
[2024-06-04 13:15] VITALS: BP 127/59; PULSE 108; RESP 15; TEMP 36.2; O2SAT 94
[2024-06-04 14:01] VITALS: BP 127/59; PULSE 108; RESP 15; TEMP 36.2; O2SAT 94
== END 2024-06-04 14:02 | disposition home or self-care (01) ==
PROVIDERS: Emergency Provider Student in an Organized Health Care Education/Training Program
DX: M10.022 Idiopathic gout, left elbow (principal); M79.602 Pain in left arm; Z03.818 Encounter for observation for suspected exposure to other biological agents ruled out
CPT/HCPCS: 0241U; 73070; 94640; 96372; 99284; J1885; J2919

== ENCOUNTER → 2024-06-04 09:42 | Outpatient (BNV) | payer MEDICARE, MEDICAID, SELFPAY | PROVIDERS: Visit Provider Radiology Diagnostic Radiology | DX: M25.522 Pain in left elbow (principal) | CPT/HCPCS: 73070 ==

== ENCOUNTER → 2024-12-12 11:30 | Outpatient (BNV) | payer MEDICARE, MEDICAID, SELFPAY | PROVIDERS: Emergency Provider Emergency Medicine Emergency Medical Services; Visit Provider Radiology Diagnostic Radiology | DX: R06.02 Shortness of breath (principal); R05.1 Acute cough | CPT/HCPCS: 71045 ==

== ENCOUNTER 2024-12-12 11:47 | Inpatient (IN) | payer MEDICARE, MEDICAID, SELFPAY ==
[2024-12-12] VITALS (10 sets, daily range): BP systolic 99–155; BP diastolic 50–91; PULSE 91–116; RESP 19–28; TEMP 36.9–37.4; O2SAT 92–99; BMI 31.8
--- NOTE | ~2024-12-12 | CT_ITS ---
EXAMINATION: CT HEAD WITHOUT CONTRAST CLINICAL INFORMATION: Persistent headache COMPARISON: None available. TECHNIQUE: Contiguous axial imaging was performed from the skull base to vertex without intravenous administration of contrast. This CT examination was performed using dose optimization techniques as appropriate, variously including the following: *Automated exposure control *Adjustment of mA and/or kV according to patient size (this includes techniques or standardized protocols for targeted exams where dose is matched to indication/reason for exam; i.e. extremities or head) *Use of iterative reconstruction technique DLP: 641 mGY*cm FINDINGS: There is no acute ischemic change. There is no intracranial hemorrhage. There is no mass-effect or midline shift. Basal cisterns and ventricles are within normal limits for age/cerebral volume. Orbits are symmetrical and unremarkable. Paranasal sinuses and mastoid air cells are pneumatized. There are changes from a remote right frontal osteotomy. There is thickening and calcification along the adjacent dura. CT/CT head/brain wo IV con IMPRESSION: No acute intracranial abnormality. 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 Electronically signed by: Curly Huizar MD 12/15/2024 11:15 AM EDT
--- NOTE | ~2024-12-12 | XR_ITS ---
EXAMINATION: XR CHEST CLINICAL INFORMATION: sob/productive cough COMPARISON: May 25, 2024. TECHNIQUE: Frontal view of the chest was obtained. FINDINGS: Mild prominence of the interstitial markings. No consolidation, pleural effusion or pneumothorax. Cardiomediastinal silhouette size is normal. S-shaped curvature of the thoracic spine. Degenerative changes in both glenohumeral joints. XR/XR chest 1V IMPRESSION: Probable chronic interstitial lung disease. Superimposed acute small airway inflammatory process cannot be excluded. Electronically signed by: Winston Levy MD 12/12/2024 12:43 PM EDT
--- NOTE | 2024-12-12 12:15 | ECG_ITS ---
Test Reason : SOB Blood Pressure : */* mmHG Vent. Rate : 113 BPM Atrial Rate : 113 BPM P-R Int : 138 ms QRS Dur : 74 ms QT Int : 324 ms P-R-T Axes : 68 24 23 degrees QTcB Int : 444 ms Sinus tachycardia Nonspecific ST and T wave abnormality Abnormal ECG When compared with ECG of 25-May-2024 12:26, No significant change was found Referred By: Slava Ralph Electronically Signed By: John Beck
[2024-12-12 12:23] LABS: MANUAL DIFF FLAG NO
[2024-12-12 12:26] LABS: Hematocrit 38.1 % (37.0-47.0); Hemoglobin 13.3 g/dl (12.0-16.0); Imm Gran Abs Auto 0.02 X10*3/uL (0.00-0.03); Imm Gran Pct Auto 0.3 % (0.0-0.4); Lymphocytes Absolute Auto 1.1 X10*3/uL (1.2-4.9); Mean Corpuscular HGB Conc 34.9 g/dl (31.0-35.0); Mean Corpuscular Hemoglobin 31.3 pg (27.0-33.0); Mean Corpuscular Volume 89.6 fL (80.0-98.0); NRBC Abs Auto 0.000 X10*3/uL (0.0-0.012); NRBC Pct Auto 0.0 /100WBC (0.0-0.2); Platelet Count 180 X10*3/uL (160-400); Red Blood Count 4.25 X10*6/uL (4.20-5.50); White Blood Count 5.7 X10*3/uL (4.8-10.8)
[2024-12-12 12:27] LABS: Venous Blood Gas Refer to POC result
[2024-12-12 12:28] LABS: VBG HCO3 26 mmol/L (22-26); VBG O2 % Saturation 61.0 %
--- NOTE | 2024-12-12 12:29 | ED.GENADULT ---
HPI - General Adult General Chief complaint: Dyspnea Stated complaint: SOB,HX ASTHMA Time Seen by Provider: 12/12/24 12:11 Source: patient Mode of arrival: ambulatory Limitations: no limitations History of Present Illness ED Provider: Slava Ralph HPI narrative: 69-year-old female history of asthma COPD still smoking presents to ED for coughing wheezing and shortness of breath for the past couple of days. Patient states her roommate was sick with coughing now she is also sick. Patient denies any leg swelling, calf pain, coughing up blood, or pitting edema. Patient states no relief with nebulizer at home Related Data Home Medications ?Medication ?Instructions ?Recorded ?Confirmed albuterol sulfate 90 mcg/actuation 2 puff inhalation Q4H PRN 12/12/24 12/12/24 aerosol inhaler shortness of breath or wheezing Allergies Allergy/AdvReac Type Severity Reaction Status Date / Time acetaminophen (From Vicodin) Allergy Itching Verified 12/12/24 12:03 hydrocodone (From Vicodin) Allergy Itching Verified 12/12/24 12:03 Review of Systems Review of Systems: Cough with phlegm, wheezing, Yes all other systems are reviewed and are negative [facility] Past Medical History Medical History (Updated 12/12/24 @ 19:06 by Leda Rose MD) Asthma Social History Social History Household Members: Other Housing: House Do you presently have visiting nurse or other home services: No Patient Tobacco Use Status: Current everyday Tobacco user Advance Directives Date on File: 12/12/24 service: No Physical Exam ED Vital Signs: Vital Signs - 24 hr 12/12/24 11:54 12/12/24 12:02 12/12/24 12:42 Temperature 99.3 F Pulse Rate 110 H 110 H Respiratory Rate 24 H 22 H Blood Pressure 126/69 Pulse Oximetry 99 Oxygen Delivery Method Room Air 12/12/24 14:46 12/12/24 15:44 12/12/24 17:20 Temperature 98.5 F 98.8 F Pulse Rate 116 H 116 H 105 H Respiratory Rate 28 H 20 20 Blood Pressure 99/55 L 113/59 L Pulse Oximetry 94 95 Oxygen Delivery Method Room Air Room Air BMI result Body Mass Index 31.8 Const General: cooperative, healthy appearing, comfortable, no acute distress, well developed, alert, awake and Physically active Orientation/consciousness: patient oriented x3 [facility] Head: Yes normal to inspection, Yes No palpable skull fracture present, Yes normocephalic and Yes atraumatic Eyes General: appearance normal, both eyes and all related structures Neck Neck: Yes normal visual inspection, Yes full ROM, Yes no lymphadenopathy, Yes no meningeal signs, Yes trachea midline, Yes supple, No anterior neck swelling and No tender Chest Chest palpation & inspection: normal inspection of the chest and normal palpation of entire chest wall Resp Effort & Inspection: normal respiratory effort and able to speak in complete sentences Auscultation: wheezes expiratory wheezes and diminished lung sounds Cardio Jugular venous distension: no JVD Heart sounds: S1 normal heart sound present and S2 normal heart sound present GI Inspection: Yes normal to inspection Palpation (GI): Soft to palpation, not firm, nontender, no guarding and not rigid General: Yes no CVA tenderness Back/Spine/Pelvis Back: no CVA tenderness and No back tenderness Skin General skin exam: no rashes or lesions noted, elasticity normal and turgor normal Neuro General: patient oriented x3, gait normal, tone normal, moves all extremities, Normal light touch and pain sensation, no meningeal signs, no focal motor deficits, CN's II-XI intact bilaterally and normal sensation to monofilament Extrem Other: Bilateral lower extremity negative for swelling, pitting edema, or calf tenderness. General: Yes normal to inspection, Yes full ROM and Yes capillary refill normal Psych Appearance: grossly normal, well kempt and not disheveled Medications Administered Generic Name Dose Route Start Last Admin Trade Name Freq PRN Reason Stop Dose Admin Acetaminophen 975 mg 12/12/24 18:27 12/13/24 16:01 Acetaminophen 325 Mg Tablet PO 975 mg Q6H PRN Administration Pain, Mild 1-3,fever,headache Albuterol Sulfate 2.5 mg 12/12/24 18:33 12/12/24 23:00 Albuterol Sulfate (0.083%) 2.5 Mg/3 Ml Vial.Neb INHALE 2.5 mg Q2H PRN Administration Shortness of Breath/Wheezing Albuterol/Ipratropium 3 ml 12/12/24 20:00 12/13/24 14:52 Albuterol/Iprat 2.5/0.5mg 3 Ml Ampul.Neb INHALE 3 ml RQ4H WHILE AWAKE PATRICK Administration Lidocaine 1 patch 12/13/24 15:15 12/13/24 15:57 Lidocaine 4 % Patch Adh..Patch TRANSDERMA 1 patch DAILY PATRICK Administration Protocol Magnesium Hydroxide 30 ml 12/12/24 18:27 12/13/24 11:07 Milk Of Magnesia 30 Ml Oral.Susp PO 30 ml DAILY PRN Administration Constipation Melatonin 6 mg 12/12/24 18:27 12/12/24 23:18 Melatonin 3 Mg Tablet PO 6 mg BEDTIME PRN Administration Insomnia Methylprednisolone Sodium Succinate 40 mg 12/13/24 08:00 12/13/24 07:04 Methylprednisolone Sod Succ 40 Mg/Ml Vial IVPUSH 40 mg Q12H PATRICK Administration Polyethylene Glycol 17 gm 12/13/24 09:00 12/13/24 07:04 Polyethylene Glycol 3350 17 Gm Powd.Pack PO 17 gm DAILY PATRICK Administration Senna 17.2 mg 12/12/24 21:00 12/12/24 23:17 Sennosides 8.6 Mg Tablet PO 17.2 mg BEDTIME PATRICK Administration Sodium Chloride 3 ml 12/13/24 00:00 12/13/24 15:58 0.9 % Sodium Chloride Flush 3 Ml Syringe IVFLUSH 3 ml QSHIFT PATRICK Administration Discontinued Medications Generic Name Dose Route Start Last Admin Trade Name Freq PRN Reason Stop Dose Admin Acetaminophen 975 mg 12/12/24 12:05 12/12/24 12:08 Acetaminophen 325 Mg Tablet PO 12/12/24 12:06 975 mg ONCE ONE Administration Levalbuterol HCl 2.5 mg/ 0 mg 12/12/24 12:39 12/12/24 12:42 Ipratropium [place] 0.5 mg INHALE 12/12/24 12:40 1 dose ONCE ONE Administration Levalbuterol HCl 1.25 mg/ 0 mg 12/12/24 15:39 12/12/24 15:43 Ipratropium [place] 0.5 mg INHALE 12/12/24 15:40 1 dose ONCE ONE Administration Guaifenesin 10 ml 12/12/24 15:00 12/12/24 15:07 Guaifenesin 200 Mg/10 Ml 10 Ml Liquid PO 12/12/24 15:01 10 ml ONCE ONE Administration Hydromorphone HCl 0.5 mg 12/12/24 18:29 12/12/24 18:47 Hydromorphone Hcl 0.5 Mg/0.5 Ml Syringe IVPUSH 12/12/24 18:30 0.5 mg ONCE STA Administration Protocol Magnesium Sulfate 2 gm in 50 mls @ 25 mls/hr 12/12/24 12:27 12/12/24 15:07 Magnesium Sulfate/H2o IV 12/12/24 14:26 Infused ONCE ONE Infusion Methylprednisolone Sodium Succinate 125 mg 12/12/24 12:27 12/12/24 13:04 Methylprednisolone Sod Succ 125 Mg/2 Ml Vial IVPUSH 12/12/24 12:28 125 mg ONCE ONE Administration Medical Decision Making Medical Decision Making [facility] Narrative: 69-year-old female presents to ED with URI symptoms. Positive for wheezing throughout the lungs are diminished sounds. EKG labs chest x-ray ordered. Albuterol Solu-Medrol magnesium ordered. 3:12pm: Patient is positive for COVID. EKG BNP troponin negative. Patient is ambulatory oxygen makes in the 95% but patient is still have significant working of breathing and heart rate goes up to the 100 and 20 30s and respiratory rate goes up to the 30s and 40s on ambulation. We jose discussed admission with hospitalist 6:37pm: Patient to be admitted for COVID induced asthma exacerbation. Patient is still tachypneic and tachycardic but not hypoxic. Dr. Anders Rose accepted the case. Patient's repeat VBG was done in ordered. Differential Diagnosis Differential Diagnoses: The differential diagnosis associated with the presentation includes (Pneumonia, asthma, COVID influenza) Admission/Observation Consideration of admission/observation: Escalation of care including admission/observation considered Consult Healthcare Provider Management of the patient was discussed with: Special Effects Specialist (Dr. Anders Rose) Lab Data [facility] Lab Attestation statement: I reviewed the patient's lab results. 12/13/24 06:12 12/13/24 06:12 Labs: Lab Results 12/12/24 12/12/24 12/12/24 Range/Units 12:16 12:17 12:23 WBC 5.7 (4.8-10.8) X10*3/uL RBC 4.25 (4.20-5.50) X10*6/uL Hgb 13.3 (12.0-16.0) g/dl Hct 38.1 (37.0-47.0) % MCV 89.6 (80.0-98.0) fL MCH 31.3 (27.0-33.0) pg MCHC 34.9 (31.0-35.0) g/dl RDW 12.7 (11.0-16.0) % Plt Count 180 (160-400) X10*3/uL MPV 9.2 L (9.4-12.3) fL Immature Gran % (Auto) 0.3 (0.0-0.4) % Neut % (Auto) 73.5 H (45-73) % Lymph % (Auto) 19.2 L (20-40) % [place] % (Auto) 6.6 (2-11) % Eos % (Auto) 0.2 (0-4) % Baso % (Auto) 0.2 (0-2) % Lymph # (Auto) 1.1 L (1.2-4.9) X10*3/uL [place] # (Auto) 0.4 (0.1-1.2) X10*3/uL Eos # (Auto) 0.0 (0.0-0.4) X10*3/uL Baso # (Auto) 0.0 (0.0-0.2) X10*3/uL Abs Immat Gran (auto) 0.02 (0.00-0.03) X10*3/uL Absolute Neuts (auto) 4.2 (2.0-8.3) x10*3/uL Absolute Nucleated RBC 0.000 (0.0-0.012) X10*3/uL Nucleated RBC % (auto) 0.0 (0.0-0.2) /100WBC Hold Blue Top SEE NOTE VBG pH 7.43 (7.32-7.43) VBG pCO2 39 mmHg VBG pO2 36 mmHg VBG HCO3 26 (22-26) mmol/L VBG O2 Saturation 61.0 % VBG Base Excess 2.2 mmol/L Sodium 142 (135-145) mmol/L Potassium 3.3 (3.3-5.1) mmol/L Chloride 107 (96-108) mmol/L Carbon Dioxide 26 (22-29) mmol/L Anion Gap 12 (12-20) BUN 7 L (9-16) mg/dL Creatinine 0.68 (0.5-1.4) mg/dL Estim Creat Clear Calc 78.9 Estimated GFR > 60 Random Glucose 91 (60-115) mg/dL Calcium 9.7 D (8.4-10.2) mg/dL Total Bilirubin 0.6 (0.0-1.0) mg/dL AST 21 (5-31) U/L ALT 14 (0-31) U/L Alkaline Phosphatase 99 (39-117) U/L Troponin I High Sens 3.5 (<3.5-17.0) ng/L B-Natriuretic Peptide 27 (<100) pg/mL Total Protein 7.1 (6.5-8.0) g/dL Albumin 4.3 (3.5-5.0) g/dL Influenza Type A (PCR) NEGATIVE (Negative) Influenza Type B (PCR) NEGATIVE (Negative) RSV RNA Qual (PCR) NEGATIVE (Negative) SARS-CoV-2 RNA (RT-PCR) POSITIVE A (Negative) 12/12/24 12/12/24 Range/Units 16:49 17:38 WBC (4.8-10.8) X10*3/uL RBC (4.20-5.50) X10*6/uL Hgb (12.0-16.0) g/dl Hct (37.0-47.0) % MCV (80.0-98.0) fL MCH (27.0-33.0) pg MCHC (31.0-35.0) g/dl RDW (11.0-16.0) % Plt Count (160-400) X10*3/uL MPV (9.4-12.3) fL Immature Gran % (Auto) (0.0-0.4) % Neut % (Auto) (45-73) % Lymph % (Auto) (20-40) % [place] % (Auto) (2-11) % Eos % (Auto) (0-4) % Baso % (Auto) (0-2) % Lymph # (Auto) (1.2-4.9) X10*3/uL [place] # (Auto) (0.1-1.2) X10*3/uL Eos # (Auto) (0.0-0.4) X10*3/uL Baso # (Auto) (0.0-0.2) X10*3/uL Abs Immat Gran (auto) (0.00-0.03) X10*3/uL Absolute Neuts (auto) (2.0-8.3) x10*3/uL Absolute Nucleated RBC (0.0-0.012) X10*3/uL Nucleated RBC % (auto) (0.0-0.2) /100WBC Hold Blue Top VBG pH 7.42 7.42 (7.32-7.43) VBG pCO2 27 26 mmHg VBG pO2 83 123 mmHg VBG HCO3 18 L 17 L (22-26) mmol/L VBG O2 Saturation 98.0 100.0 % VBG Base Excess -4.6 -4.9 mmol/L Sodium (135-145) mmol/L Potassium (3.3-5.1) mmol/L Chloride (96-108) mmol/L Carbon Dioxide (22-29) mmol/L Anion Gap (12-20) BUN (9-16) mg/dL Creatinine (0.5-1.4) mg/dL Estim Creat Clear Calc Estimated GFR Random Glucose (60-115) mg/dL Calcium (8.4-10.2) mg/dL Total Bilirubin (0.0-1.0) mg/dL AST (5-31) U/L ALT (0-31) U/L Alkaline Phosphatase (39-117) U/L Troponin I High Sens (<3.5-17.0) ng/L B-Natriuretic Peptide (<100) pg/mL Total Protein (6.5-8.0) g/dL Albumin (3.5-5.0) g/dL Influenza Type A (PCR) (Negative) Influenza Type B (PCR) (Negative) RSV RNA Qual (PCR) (Negative) SARS-CoV-2 RNA (RT-PCR) (Negative) Independent Interpretation I performed an independent interpretation of an: EKG (Sinus Tach) and Plain X-Ray Radiology Impression Discussion of test interpretation with radiology: I have reviewed the radiologist's reading. Independent Historian Clinical information obtained from an independent historian. History obtained from or confirmed by: Other (patient) Critical Care Time Critical Care Time Critical Care Time: Yes Total Critical Care Time: 60 Attestation: asthma exacerbation, tachycardic, tachypenic, IV magnesium, solumedrol, albuterol, xray, and admitted Discharge Plan Discharge Clinical Impression: Asthma with exacerbation Qualifiers: Asthma severity: severe Asthma persistence: persistent Qualified Code(s): J45.51 - Severe persistent asthma with (acute) exacerbation Patient Disposition: Admitted As Inpatient Interventions: Admission Worksheet (ED) Last Done: 12/13/24 06:53 Discharge Date/Time: 12/13/24 10:22
[2024-12-12 12:39] LABS: Alanine Aminotransferase 14 U/L (0-31); Albumin Level 4.3 g/dL (3.5-5.0); Alkaline Phosphatase 99 U/L (39-117); Anion Gap 12 (12-20); Aspartate Amino Transferase 21 U/L (5-31); Blood Urea Nitrogen 7 mg/dL (9-16); Calcium 9.7 mg/dL (8.4-10.2); Carbon Dioxide 26 mmol/L (22-29); Chloride 107 mmol/L (96-108); Creatinine Clr Calc Pharmacy 78.9; Estimated Glomerular Filt Rate > 60; Potassium 3.3 mmol/L (3.3-5.1); Sodium 142 mmol/L (135-145); Total Protein 7.1 g/dL (6.5-8.0)
[2024-12-12] MEDS: levalbuterol HCL 2.5 MG, Ipratropium Bromide 0.5 MG INHALE (12:42)
[2024-12-12 12:43] LABS: B Type Natriuretic Peptide 27 pg/mL (<100)
[2024-12-12 12:46] LABS: Troponin-I High Sensitivity 3.5 ng/L (<3.5-17.0)
[2024-12-12] MEDS: Magnesium Sulfate/H2O 2 GM/50 ML PIGGYBACK IV (13:04)
--- OUTSIDE RECORDS SUMMARY | 2024-12-12 13:04 | XMS_ITS | Clinical Summary ---
Author Organization [facility] Address [address] [place] [address] Phone Care Team Providers Care Slip Feeder Name Role Phone Physician, No Pcp Primary Care Provider Unavaila ble Allergies No known active allergies Medications albuterol HFA (Proventil HFA) 90 mcg/actuation inhaler Inhale 2 puffs by mouth every 4 (four) hours if needed for wheezing or shortness of breath. 6.7 g 5 09/18/19 26 Active pantoprazole (PROTONIX) 40 mg EC tablet Take 1 tablet (40 mg total) by mouth 2 (two) times a day. Do not crush, chew, or split. 60 each 1 5 11/17/19 25 Active Problems Problem Noted Date Diagnosed Date Septic joint of right wrist (CMS/HCC V24, CMS/HC C V28) 09/16/2024 Encounters Date Type Department Care Team Description 09/16/2024 2:28 PM EDT - 09/17/2024 1:17 PM EDT Hospital Encounter [facility] Surgical Unit [address] [place] [address] Terry Chan MD Seralathan, Manikandan, MD Pain (Primary Dx); Right wrist pain Discharge Disposition: Home or Self Care from Last 3 Months Surgical History Surgery Date Site/Laterality Comments JOHN HOLE FOR SUBDURAL HEMATOMA Medical History Medical History Date Comments Gout Asthma ETOH abuse Sober x 1 year Family History Medical History Relation Name Comments Cancer Sister Relation Name Status Comments Sister Social History Tobacco Use Types Packs/Day Years Used Date Smoking Tobacco: Former Cigarettes Smokeless Tobacco: Never Comments:Quit 4 months ago Alcohol Use Standard Drinks/Week Comments Not Currently 0 (1 standard drink = 0.6 oz pur e alcohol) History of heavy alcohol use Interpersonal Safety Answer Date Record ed Physical Abuse 09/16/2024 Verbal Abuse 09/16/2024 Comments Unknown Sex and Gender Information Value Date Recorded Sex Assigned at Not on file Legal Sex Female 1:55 PM EDT Gender Identity Not on file Sexual Orientation Not on file Obstetrics History Last Filed Vital Signs Vital Sign Reading Time Taken Comments Blood Pressure 110/69 09/17/2024 11:15 AM EDT Pulse 68 09/17/2024 11:15 AM EDT Temperature 36 C (96.8 F) 09/17/2024 11:15 AM EDT Respiratory Rate 16 09/17/2024 11:15 AM EDT Oxygen Saturation 99% 09/17/2024 11:15 AM EDT Inhaled Oxygen Concentration - - Weight 63.5 kg (140 lb) 09/16/2024 2:21 PM EDT Height 160 cm (5' 3 ) 09/16/2024 2:21 PM EDT Body Mass Index 24.8 09/16/2024 2:21 PM EDT Plan of Treatment Health Maintenance Due Date Last Done Comments Breast Cancer Screening 1955 DTaP,Tdap,and Td Vaccines (1 - Tdap) 1974 Pneumococcal Vaccine: 50+ Ye ars (1 of 2 - PCV) 1974 Zoster Vaccines (1 of 2) 2005 RSV Immunization Adult Patie nts (1 - Risk 60-74 years 1-dose series) 2015 COVID-19 Vaccine (1 - 2023-2 5 season) 2024 Depression Screening 05/21/2024 Colorectal Cancer Screening: Colonoscopy 09/17/2024 Hepatitis C Screening 09/17/2024 Medicare Annual Wellness Visit 09/17/2024 Osteoporosis Screening (Bone Density Screening) 09/17/2024 Social Influencers of Health Screening 09/17/2024 Influenza Vaccine (#1) 2025 Falls Risk Assessment 09/17/2025 09/17/2024 HIB Vaccines Aged Out No longer eligi ble based on patient's age to complete this topic HPV Vaccines Aged Out No longer eligi ble based on patient's age to complete this topic Hepatitis A Vaccines Aged Out No long er eligible based on patient's age to complete this topic Hepatitis B Vaccines Aged Out No long er eligible based on patient's age to complete this topic IPV Vaccines Aged Out No longer eligi ble based on patient's age to complete this topic MMR Vaccines Aged Out No longer eligi ble based on patient's age to complete this topic Meningococcal ACWY Vaccine Aged Out N o longer eligible based on patient's age to complete this topic Meningococcal B Vaccine Aged Out No l onger eligible based on patient's age to complete this topic RSV Immunization Patients Un sourav 20 months Aged Out No longer eligible b ased on patient's age to complete this topic Varicella Vaccines Aged Out No longer eligible based on patient's age to complete this topic Procedures Procedure Name Priority Date/Time Associated Diagnosis Comments CBC WITH AUTO DIFFERENTIAL Routine 09/17/2024 6:31 AM EDT C-REACTIVE PROTEIN Routine 09/17/2024 6: 31 AM EDT CBC AND DIFFERENTIAL Routine 09/17/2024 6:31 AM EDT BASIC METABOLIC PANEL Routine 09/17/2024 6:31 AM EDT CULTURE BLOOD STAT 09/16/2024 4:50 PM EDT CULTURE BLOOD STAT 09/16/2024 4:38 PM EDT CBC WITH AUTO DIFFERENTIAL STAT 09/16/2024 4:10 PM EDT URIC ACID STAT 09/16/2024 4:10 PM EDT CBC AND DIFFERENTIAL STAT 09/16/2024 4:10 PM EDT BASIC METABOLIC PANEL STAT 09/16/2024 4:10 PM EDT XR WRIST 3+ VIEWS RIGHT STAT 09/16/2024 4:05 PM EDT VAS US DUPLEX UPPER EXT VENOUS RIGHT STAT 09/16/2024 3:58 PM EDT Pain C-REACTIVE PROTEIN STAT 09/16/2024 2: 58 PM EDT SEDIMENTATION RATE STAT 09/16/2024 2: 58 PM EDT from Last 3 Months Results * (ABNORMAL) CBC auto differential (09/17/2024 6:31 AM EDT) Only the most recent of2 resultswithin the time period is included. [facility] WBC 6.0 4.8 - 10.8 K/mcL LAB HEMETOLOGY METHOD 09/17/2024 7:25 AM EDT [facility] RBC 3.80 3.80 - 4.80 M/mcL LAB [facility] Hemoglobin 11.9 11.5 - 16.0 g/dL LAB HEMETOLOGY METHOD 09/17/2024 7:25 AM [facility] Hematocrit 35.0 35.0 - 47.0 % LAB HEMETOLOGY METHOD 09/17/2024 7:25 AM [facility] MCV 91.6 79.0 - 98.0 FL LAB HEMETOLOGY METHOD [facility]24 [facility] MCH 31.2 27.0 - 32.0 pcg LAB HEMETOLOGY METHOD 09/17/2024 7:25 AM [facility] MCHC 34.0 32.0 - 37.0 g/dL LAB HEMETOLOGY METHOD 09/17/2024 7:25 AM [facility] RDW 12.1 11.0 - 15.0 % LAB HEMETOLOGY METHOD 09/17/2024 7:25 AM [facility] Platelets 221 130 - 400 K/mcL LAB HEMETOLOGY METHOD [facility]/17[facility]24 [facility] MPV 9.7 7.0 - 11.0 FL LAB HEMETOLOGY METHOD 09/17/2024 7:25 AM [facility] NRBC 0.0 <1.0 % LAB HEMETOLOGY METHOD 09/17/2024 7:25 AM [facility] NRBC Absolute 0.00 <0.10 K/mcL LAB HEMETOLOGY METHOD 09/17/2024 7:25 AM [facility] Neutrophils Relative 86.8 % LAB HEMETOLOGY METHOD 09/17/2024 7:25 AM [facility] Lymphocytes Relative 11.3 % LAB HEMETOLOGY METHOD 09/17/2024 7:25 AM [facility] Monocytes Relative 1.2 % LAB HEMETOLOGY METHOD 09/17/2024 7:25 AM [facility] Eosinophils Relative 0.0 % LAB HEMETOLOGY METHOD 09/17/2024 7:25 AM [facility] Basophils Relative 0.2 % LAB HEMETOLOGY METHOD 09/17/2024 7:25 AM [facility] Immature Granulocytes Relative 0.5 % LAB HEMETOLOGY METHOD 09/17/2024 7:25 AM [facility] Neutrophils Absolute 5.23 1.50 - 7.00 K/mcL LAB HEMETOLOGY METHOD 09/17/2024 7:25 AM [facility] Lymphocytes Absolute 0.68(L) 1.00 - 5.00 K/mcL LAB HEMETOLOGY METHOD 09/17/2024 7:25 AM [facility] Monocytes Absolute 0.07(L) 0.20 - 1.00 K/mcL LAB HEMETOLOGY METHOD 09/17/2024 7:25 AM [facility] Eosinophils Absolute 0.00 0.00 - 0.50 K/mcL LAB HEMETOLOGY METHOD 09/17/2024 7:25 AM EDT [facility] Basophils Absolute 0.01 0.00 - 0.20 K/mcL LAB HEMETOLOGY METHOD 09/17/2024 7:25 AM EDT [facility] Immature Granulocytes Absolute 0.03 0.00 - 0.03 K/mcL LAB HEMETOLOGY METHOD 09/17/2024 7:25 AM EDT [facility] Blood Venous blood specimen / Unknown Venipuncture / Unknown 09/17/2024 6:31 AM EDT 09/17/2024 7:01 AM EDT Terry Chan MD LAB BLOOD ORDERABLES Anaid l Result Performing Organization Address [facility] de Phone Number [facility] [address] [place] [address], [place] [phone] * (ABNORMAL) C-reactive protein (09/17/2024 6:31 AM EDT) Only the most recent of2 resultswithin the time period is included. C-Reactive Protein 1.68(H) <=0.50 mg/dL LAB CHEMISTRY METHOD 09/17/2024 7:45 AM EDT [facility] Blood Venous blood specimen / Unknown Venipuncture / Unknown 09/17/2024 6:31 AM EDT 09/17/2024 7:01 AM EDT Jazzmine VILLEGAS LAB BLOOD ORDERABLES Final Resu lt Performing Organization Address [facility]/ZIP Co de Phone Number [facility] [address] [place] [address], [place] [phone] * (ABNORMAL) Basic metabolic panel (09/17/2024 6:31 AM EDT) Only the most recent of2 resultswithin the time period is included. Sodium 140 133 - 145 mmol/L LAB CHEMISTRY METHOD 09/17/2024 7:45 AM [facility] Potassium 4.3 3.5 - 5.5 mmol/L LAB CHEMISTRY METHOD 09/17/2024 7:45 AM [facility] Chloride 110 96 - 110 mmol/L LAB CHEMISTRY METHOD 09/17/2024 7:45 AM [facility] CO2 25 21 - 32 mmol/L LAB CHEMISTRY METHOD 09/17/2024 7:45 AM [facility] Anion Gap 5 3 - 11 LAB CHEMISTRY METHOD 09/17/2024 7:45 AM [facility] Glucose 133(H) 70 - 100 mg/dL LAB CHEMISTRY METHOD 09/17/2024 7:45 AM [facility] BUN 18 5 - 25 mg/dL LAB CHEMISTRY METHOD 09/17/2024 7:45 AM [facility] Creatinine 0.76 0.50 - 1.10 mg/dL LAB CHEMISTRY METHOD 09/17/2024 7:45 AM [facility] eGFR 85 >=60 mL/min/1. 73m2 LAB CHEMISTRY METHOD 09/17/2024 7:45 AM [facility] Comment:Calculation based on the Chronic Kidney Disease Epidemiology Collaboration (CKD-EPI) equation refit without adjustment for race. BUN/Creatinine Ratio 23.7 LAB CHEMISTRY METHOD 09/17/2024 7:45 AM [facility] Calcium 9.2 8.5 - 10.5 mg/dL LAB CHEMISTRY METHOD 09/17/2024 7:45 AM [facility] Blood Venous blood specimen / Unknown Venipuncture / Unknown 09/17/2024 6:31 AM EDT 09/17/2024 7:01 AM EDT us Terry Chan MD LAB BLOOD ORDERABLES Anaid l Result Performing Organization Address [facility]/ZIP Co de Phone Number [facility] [address] [place] [address], [place] [phone] * Blood Culture, Peripheral #1 (09/16/2024 4:50 PM EDT) Only the most recent of2 resultswithin the time period is included. Culture, Blood No growth at 5 days 09/21/2024 6:01 PM EDT [facility] Blood Venous blood specimen / Unknown Venipuncture / Unknown 09/16/2024 4:50 PM EDT 09/16/2024 5:21 PM EDT Brittany VILLEGAS LAB MICROBIOLOGY - GEN ERAL ORDERABLES Final Result Performing Organization Address [facility] Co de Phone Number [facility] [address] [place] [address], [place] [phone] * Uric acid (09/16/2024 4:10 PM EDT) [facility] Uric Acid 7.2 3.1 - 7.8 mg/dL LAB CHEMISTRY METHOD 09/16/2024 4:51 PM EDT [facility] Blood Venous blood specimen / Unknown Venipuncture / Unknown 09/16/2024 4:10 PM EDT 09/16/2024 4:26 PM EDT Brittany KinveyestelasKristyAv PA LAB BLOOD ORDERABLES F inal Result Performing Organization Address [facility] Co de Phone Number [facility] [address] [place] [address], [place] [phone] * XR Wrist 3+ Views Right (09/16/2024 4:05 PM EDT) Anatomical Region Laterality Modality Upper Extremities, Wrist Right Radiogr aphic Imaging 09/16/2024 4:39 PM EDT Impressions 09/16/2024 4:40 PM EDT FINDINGS/IMPRESSION: 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 No acute fracture. Normal alignment. -------- FINAL REPORT -------- Dictated By: Tierney Vasquez Dictated Date: 09/16/2024 16:39 ET Assigned Physician: Tierney Vasquez Reviewed and Electronically Signed By: Tierney Vasquez Signed Date: 09/16/2024 16:40 ET Workstation ID: [id number] Transcribed By: Self Edit Transcribed Date: 09/16/2024 16:39 ET Narrative 09/16/2024 4:40 PM EDT XR WRIST 3+ VIEWS RIGHT INDICATION: pain no injury TECHNIQUE: XR WRIST 3+ VIEWS RIGHT COMPARISON: No priors available. Procedure Note Tierney Vasquez MD - 09/16/2024 XR WRIST 3+ VIEWS RIGHT INDICATION: pain no injury TECHNIQUE: XR WRIST 3+ VIEWS RIGHT COMPARISON: No priors available. 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 Noacute fracture. Normal alignment. -------- FINAL REPORT -------- Dictated By: Tierney Vasquez Dictated Date: 09/16/2024 16:39 ET Assigned Physician: Tierney Vasquez Reviewed and Electronically Signed By: Tierney Vasquez Signed Date: 09/16/2024 16:40 ET Workstation ID: [id number] Transcribed By: Self Edit Transcribed Date: 09/16/2024 16:39 ET us Brittanyroro RalphsJn PA IMG XR PROCEDURES Anaid l Result * Vascular US duplex upper extremity venous right (09/16/2024 3:58 PM EDT) Anatomical Region Laterality Modality Vascular, Abdomen Ultrasound 09/16/2024 4:10 PM EDT Impressions 09/16/2024 4:10 PM EDT No evidence for DVT within the right upper extremity. -------- FINAL REPORT -------- Dictated By: Tierney Vasquez Dictated Date: 09/16/2024 16:10 ET Assigned Physician: Tierney Vasquez Reviewed and Electronically Signed By: Tierney Vasquez Signed Date: 09/16/2024 16:10 ET Workstation ID: [id number] Transcribed By: Self Edit Transcribed Date: 09/16/2024 16:10 ET Narrative 09/16/2024 4:10 PM EDT STUDY: VAS US DUPLEX UPPER EXT VENOUS RIGHT COMPARISON: None INDICATION: edema r/o dvt TECHNIQUE: Multiple sonographic images of the right upper extremity were obtained with and without color flow interrogation and spectral duplex waveform analysis. FINDINGS: On the right, the visualized internal jugular vein demonstrates color flow, normal phasic waveforms, and compressibility. The visualized subclavian vein demonstrates color flow and phasic waveforms. Color flow is demonstrated within the visualized axillary vein. The brachial veins demonstrates color flow, phasic waveforms and compressibility. The visualized basilic and cephalic veins demonstrate color flow and normal compressibility. Procedure Note Tierney Vasquez MD - 09/16/2024 STUDY: VAS US DUPLEX UPPER EXT VENOUS RIGHT COMPARISON: None INDICATION: edema r/o dvt TECHNIQUE: Multiple sonographic images of the right upper extremity wereobtained with and without color flow interrogation and spectral duplexwaveform analysis. FINDINGS: On the right, the visualized internal jugular vein demonstrates colorflow, normal phasic waveforms, and compressibility. The visualizedsubclavian vein demonstrates color flow and phasic waveforms. Color flowis demonstrated within the visualized axillary vein. The brachial veinsdemonstrates color flow, phasic waveforms and compressibility. Thevisualized basilic and cephalic veins demonstrate color flow and normalcompressibility. IMPRESSION: No evidence for DVT within the right upper extremity. -------- FINAL REPORT -------- Dictated By: Tierney Vasquez Dictated Date: 09/16/2024 16:10 ET Assigned Physician: Tierney Vasquez Reviewed and Electronically Signed By: Tierney Vasquez Signed Date: 09/16/2024 16:10 ET Workstation ID: [id number] Transcribed By: Self Edit Transcribed Date: 09/16/2024 16:10 ET Brittany VILLEGAS CV VASCULAR PROCEDURES Final Result * Sedimentation rate, automated (09/16/2024 2:58 PM EDT) Sed Rate 17 0 - 30 mm/hr LAB HEMETOLOGY METHOD 09/16/2024 3:32 PM EDT [facility] ([facility] Blood Venous blood specimen / Unknown Venipuncture / Unknown 09/16/2024 2:58 PM EDT 09/16/2024 3:17 PM EDT us Terry Chan MD LAB BLOOD ORDERABLES Anaid l Result [facility] ([facility]) [facility] [address] [place] [address], [place] [phone] from Last 3 Months Insurance MEDICARE MEDICAID - [place] Advance Directives * Full Code - Default (Latest Code Status on File) Date Activated Date Inactivated Comments 09/16/2024 8:28 PM 09/17/2024 3:23 PM This is orde r is used when code status has not been discussed with the patient, or code status is otherwise unknown/unconfirmed To update the patient's code status, place a code status order. Do not modify or discontinue any currently active code status orders. Care Teams Slip Feeder Relationship Specialty Start Date End Date Physician, No Pcp PCP - General 09/16/24
[2024-12-12 13:18] LABS: Resp Syncy Virus RNA Qual PCR NEGATIVE (Negative); SARS COV2 PCR INHOUSE POSITIVE (Negative)
[2024-12-12] MEDS: guaiFENesin 200 MG/10 ML 10 ML LIQUID PO (15:07)
--- NOTE | 2024-12-12 15:08 | PC.NURSE ---
ambulating pulse ox 95% - patient increased work of breathing with ambulation. tachypneic at rest. remains on room air.
--- NOTE | 2024-12-12 15:12 | PC.RT ---
RT assessed pt for repeat bronchodilator protocol. Pt sitting up in bed eating a sandwich, l/s clear to auscultation, HR 115, able to talk in full sentences, no tx given at this time, RN aware.
[2024-12-12] MEDS: levalbuterol HCL 1.25 MG, Ipratropium Bromide 0.5 MG INHALE (15:43)
[2024-12-12 16:51] LABS: Venous Blood Gas Refer to POC result
[2024-12-12 16:52] LABS: VBG HCO3 18 mmol/L (22-26); VBG O2 % Saturation 98.0 %
[2024-12-12 17:41] LABS: Venous Blood Gas Refer to POC result
[2024-12-12 17:42] LABS: VBG HCO3 17 mmol/L (22-26); VBG O2 % Saturation 100.0 %
--- NOTE | 2024-12-12 18:33 | P.HPHOSP_ITS ---
History of Present Illness Date of Service: 12/12/24 Attending physician on admission: Leda Rose Chief Complaint: Shortness on breath Mireya Walter is a 69 years old woman with past medical history significant for asthma presents to the emergency department complaining of shortness of breath, nonproductive cough and wheezing over the last couple of days. She also complained of headache and sore throat. She also reported a left lower quadrant abdominal pain that occurs upon coughing and constipation. Her roommate has been having the same symptoms. Her symptoms did not improve after using her home inhalers. In the ED, she was found to have tachypnea and tachycardia. Oxygen saturation is 90% on room air. Blood workup showed no leukocytosis. Hemoglobin and platelets are normal. Last venous gas showed normal pH and pCO2 26. HC03 is 17. There are no electrolyte imbalances. Renal function and LFTs are normal. Troponin is 3.5 and BNP 27. Viral testing is positive for COVID-19. CXR showed probable chronic interstitial lung disease; superimposed acute small airway inflammatory process can not be excluded. ED tx: APAP 975 mg p.o., magnesium 2 g IV, Solu-Medrol 125 mg IV, Xopenex 3.5 mg/ipratropium bromide 1.0 mg total, guaifenesin 2 mL p.o. Review of Systems 2 Review of Systems: All 12 systems were reviewed and normal except as noted in HPI. [facility] Medical History (Updated 12/12/24 @ 19:06 by Leda Rose MD) Asthma Social History Advance Directives: Yes Advance Directives Information Provided: Yes Advance Directives on File: No Meds Allergies Allergy/AdvReac Type Severity Reaction Status Date / Time acetaminophen (From Vicodin) Allergy Itching Verified 12/12/24 12:03 hydrocodone (From Vicodin) Allergy Itching Verified 12/12/24 12:03 Active Medications: Current Medications Acetaminophen (Acetaminophen 325 Mg Tablet) 975 mg PO Q6H PRN PRN Reason: Pain, Mild 1-3,fever,headache Calcium Carbonate (Calcium Carbonate 750 Mg Tab.Chew) 750 mg PO Q4H PRN PRN Reason: Heartburn Hydromorphone HCl (Hydromorphone Hcl 0.5 Mg/0.5 Ml Syringe) 0.5 mg IVPUSH ONCE PRN; Protocol PRN Reason: Pain, Severe (Pain Scale 7-10) Magnesium Hydroxide (Milk Of Magnesia 30 Ml Oral.Susp) 30 ml PO DAILY PRN PRN Reason: Constipation Melatonin (Melatonin 3 Mg Tablet) 6 mg PO BEDTIME PRN PRN Reason: Insomnia Polyethylene Glycol (Polyethylene Glycol 3350 17 Gm Powd.Pack) 17 gm PO DAILY PATRICK Senna (Sennosides 8.6 Mg Tablet) 17.2 mg PO BEDTIME PATRICK Sodium Chloride (0.9 % Sodium Chloride Flush 3 Ml Syringe) 3 ml IVFLUSH QSHIFT PATRICK Physical Exam 2 Vital Signs and Narrative: Vital Signs: Last Vital Signs Temp 98.8 F 12/12/24 17:20 Pulse 105 H 12/12/24 17:20 Resp 20 12/12/24 17:20 BP 113/59 L 12/12/24 17:20 Pulse Ox 95 12/12/24 17:20 O2 Del Method Room Air 12/12/24 17:20 BMI result Body Mass Index 31.8 Constitutional - Awake and Alert. Cooperative. Pleasant. Very anxious. Afebrile. HEENT - PER, EOMI Heart - Tachycardic, regular rhythm, no murmurs. Lungs - Normal lung expansion, Normal respiratory effort, No respiratory distress. Tachypnea. End expiratory wheezes. Abdomen - Nondistended. Right lower quadrant tenderness to palpation without rebound or guarding. Normal bowel sounds. Extremities - No calf tenderness bilaterally, no swelling Musculoskeletal - Normal inspection, normal ROM Skin - Warm/Dry Neurological - Alert & oriented x3. Moving all extremities spontaneously. Normal speech. Psychological - Appropriate affect Results Labs 12/12/24 12:16 12/12/24 12:16 Labs: Laboratory Results - last 24 hr 12/12/24 12/12/24 12/12/24 12:16 12:17 12:23 MCV 89.6 MCH 31.3 MCHC 34.9 RDW 12.7 Plt Count 180 MPV 9.2 L Immature Gran % (Auto) 0.3 Neut % (Auto) 73.5 H Lymph % (Auto) 19.2 L [place] % (Auto) 6.6 Eos % (Auto) 0.2 Baso % (Auto) 0.2 Lymph # (Auto) 1.1 L [place] # (Auto) 0.4 Eos # (Auto) 0.0 Baso # (Auto) 0.0 Abs Immat Gran (auto) 0.02 Absolute Neuts (auto) 4.2 Absolute Nucleated RBC 0.000 Nucleated RBC % (auto) 0.0 Hold Blue Top SEE NOTE VBG pH 7.43 VBG pCO2 39 VBG pO2 36 VBG HCO3 26 VBG O2 Saturation 61.0 VBG Base Excess 2.2 Anion Gap 12 Estim Creat Clear Calc 78.9 Estimated GFR > 60 Random Glucose 91 Calcium 9.7 D Total Bilirubin 0.6 AST 21 ALT 14 Alkaline Phosphatase 99 B-Natriuretic Peptide 27 Total Protein 7.1 Albumin 4.3 Influenza Type A (PCR) NEGATIVE Influenza Type B (PCR) NEGATIVE RSV RNA Qual (PCR) NEGATIVE SARS-CoV-2 RNA (RT-PCR) POSITIVE A 12/12/24 12/12/24 16:49 17:38 MCV MCH MCHC RDW Plt Count MPV Immature Gran % (Auto) Neut % (Auto) Lymph % (Auto) [place] % (Auto) Eos % (Auto) Baso % (Auto) Lymph # (Auto) [place] # (Auto) Eos # (Auto) Baso # (Auto) Abs Immat Gran (auto) Absolute Neuts (auto) Absolute Nucleated RBC Nucleated RBC % (auto) Hold Blue Top VBG pH 7.42 7.42 VBG pCO2 27 26 VBG pO2 83 123 VBG HCO3 18 L 17 L VBG O2 Saturation 98.0 100.0 VBG Base Excess -4.6 -4.9 Anion Gap Estim Creat Clear Calc Estimated GFR Random Glucose Calcium Total Bilirubin AST ALT Alkaline Phosphatase B-Natriuretic Peptide Total Protein Albumin Influenza Type A (PCR) Influenza Type B (PCR) RSV RNA Qual (PCR) SARS-CoV-2 RNA (RT-PCR) Imaging Radiologist's Impressions: Impressions Chest X-Ray 12/12/24 11:30 IMPRESSION: Probable chronic interstitial lung disease. Superimposed acute small airway inflammatory process cannot be excluded. Electronically signed by: Winston Levy MD 12/12/2024 12:43 PM EDT Assessment and Plan (1) Asthma with exacerbation: Qualifiers: Asthma persistence: persistent Asthma severity: severe Qualified Code(s): J45.51 - Severe persistent asthma with (acute) exacerbation Status: Acute (2) Constipation: Qualifiers: Constipation type: unspecified constipation type Qualified Code(s): K 59.00 - Constipation, unspecified Status: Acute (3) Left lower quadrant pain: Status: Acute Plan Mireya Walter is a 69 y/o woman presents with: Acute asthma exacerbation secondary to COVID-19 infection. Airborne/contact precautions. Pulse oximetry. Supplemental O2 to keep O2 sats > 90%. Continue bronchodilator therapy and IV steroids. Left lower quadrant pain upon coughing; possibly musculoskeletal in nature and/or associated to constipation. Will obtain urinalysis. Pain control with Dilaudid as needed. Milk of magnesia, Senokot and MiraLax. Code status: Full DVT prophylaxis: Lovenox Patient will need hospitalization for at least 2 midnights to treat asthma exacerbation that persists despite adequate treatment; she will need bronchodilator therapy every 4 hours and IV steroids. Quality Stroke Does the patient have a stroke diagnosis?: No VTE Prior VTE?: No VTE Risk Level:: Medical - moderate - high VTE Device Contraindication: Treatment Not Indicated VTE Drug Contraindication: N/A - Med Ordered
[2024-12-12] MEDS: Albuterol/Iprat 2.5/0.5MG 3 ML AMPUL.NEB INHALE (19:41)
--- NOTE | 2024-12-12 21:07 | PHA.MEDREC ---
Addendum entered by Sergo Lee [facility] 12/12/24 21:19: MED REC CHECKED BY [facility] Original Note: Pharmacy Consult ? Medication Reconciliation Pharmacy has completed the medication reconciliation. Spoke with pt and she confirmed she is only taking an Albuterol inhaler as needed and nothing else at this time.
[2024-12-12] MEDS: Albuterol Sulfate (0.083%) 2.5 MG/3 ML VIAL.NEB INHALE (23:00)
--- NOTE | 2024-12-12 23:00 | PC.NURSE ---
reports sob, no wheezing, spo2 95%. neb given
[2024-12-13] VITALS (7 sets, daily range): BP systolic 113–117; BP diastolic 46–88; PULSE 72–99; RESP 16–20; TEMP 36.4–36.8; O2SAT 96–97; BMI 31.7
--- NOTE | 2024-12-13 06:11 | PC.NURSE ---
pt ambulated around room x1 before bed, brushed hair, ate and drank provided food/water independently. no dysphagia. prn neb given once for report of SOB although maintained SpO2 95% or greater and no wheezing auscultated. see mar. #18 LAC redressed remains patent and intact. given tylenol for headache with effect. call oakes in reach, plan of care ongoing. alert and oriented.
[2024-12-13 06:41] LABS: Hematocrit 35.1 % (37.0-47.0); Hemoglobin 12.4 g/dl (12.0-16.0); Imm Gran Abs Auto 0.10 X10*3/uL (0.00-0.03); Imm Gran Pct Auto 0.9 % (0.0-0.4); Lymphocytes Absolute Auto 0.6 X10*3/uL (1.2-4.9); MANUAL DIFF FLAG SCAN; Mean Corpuscular HGB Conc 35.3 g/dl (31.0-35.0); Mean Corpuscular Hemoglobin 31.2 pg (27.0-33.0); Mean Corpuscular Volume 88.2 fL (80.0-98.0); NRBC Abs Auto 0.000 X10*3/uL (0.0-0.012); NRBC Pct Auto 0.0 /100WBC (0.0-0.2); Platelet Count 194 X10*3/uL (160-400); Red Blood Count 3.98 X10*6/uL (4.20-5.50); SCAN SMEAR FLAG 1; White Blood Count 11.0 X10*3/uL (4.8-10.8)
[2024-12-13 06:53] LABS: Anion Gap 13 (12-20); Blood Urea Nitrogen 15 mg/dL (9-16); Calcium 9.4 mg/dL (8.4-10.2); Carbon Dioxide 23 mmol/L (22-29); Chloride 108 mmol/L (96-108); Creatinine Clr Calc Pharmacy 76.6; Estimated Glomerular Filt Rate > 60; Magnesium 2.0 mg/dL (1.6-2.6); Potassium 4.0 mmol/L (3.3-5.1); Sodium 140 mmol/L (135-145)
[2024-12-13] MEDS: 0.9 % Sodium Chloride Flush 3 ML SYRINGE IVFLUSH ×3 (07:04→21:25)
[2024-12-13 07:23] LABS: Appearance Urine Clear; Glucose Urine UA Negative (Negative); PH 7.0 (5.0-9.0); Specific Gravity - Urine 1.010 (1.005-1.025); UMIC TRIGGER UACC YES
--- NOTE | 2024-12-13 07:27 | PC.NURSE ---
Assumed care of pt approx 0700, pt OOB independently- pt informed urine sample needed and pt voided moderate amount of CYU in BSC. U/A obtained and sent. #18 to [facility] intact/patent.
[2024-12-13] MEDS: Albuterol/Iprat 2.5/0.5MG 3 ML AMPUL.NEB INHALE ×4 (07:33→21:34)
[2024-12-13] MEDS: Milk of Magnesia 30 ML ORAL.SUSP PO (11:07)
--- NOTE | 2024-12-13 13:46 | MHC.CM.PN ---
IMM 12/13/24, Pt lives in a skilled nursing that supports people with addiction, she has been there a year and is graduating and moving into an apt. in [place] soon. She will DC back to skilled nursing. She does not have PCP, moved here from [place], brochure given. She does not use home health services or DME, HCP discussed, she declined to complete form. She is not sure if she can get transport back. DCP: home, self care, CM to follow for DC needs.
--- NOTE | 2024-12-13 14:25 | HO.PM.IMPN ---
Subjective Subjective Date of Service: 12/13/24 Interval History: asthma/covid Review of Systems sob improving but still sob with execersion has some cough nonproductive has constipation Review of Systems: Yes all other systems are reviewed and are negative Physical Exam Exam: Exam: Appearance: Alert.? Oriented X3.? . cvs: rrr, [id number] . res: air entry improving ,b/l exp wheezing abd: no rebound or guarding ,nt, bs present. ext pulses present , no cyanosis . neuro: axo3 , nonfocal. Vital Signs: Vital Signs: Last Vital Signs Temp 97.5 F 12/13/24 10:40 Pulse 83 12/13/24 10:40 Resp 20 12/13/24 10:40 BP 116/61 12/13/24 10:40 Pulse Ox 96 12/13/24 10:40 O2 Del Method Room Air 12/13/24 10:40 BMI result Body Mass Index 31.7 Objective Data Active Medications Acetaminophen (Acetaminophen 325 Mg Tablet) 975 mg PO Q6H PRN PRN Reason: Pain, Mild 1-3,fever,headache Last Admin: 12/12/24 23:17 Dose: 975 mg Documented By: SOULEYMANE Albuterol Sulfate (Albuterol Sulfate (0.083%) 2.5 Mg/3 Ml Vial.Neb) 2.5 mg INHALE Q2H PRN PRN Reason: Shortness of Breath/Wheezing Last Admin: 12/12/24 23:00 Dose: 2.5 mg Documented By: SOULEYMANE Albuterol/Ipratropium (Albuterol/Iprat 2.5/0.5mg 3 Ml Ampul.Neb) 3 ml INHALE RQ4H WHILE AWAKE [facility] Last Admin: 12/13/24 11:05 Dose: 3 ml Documented By: JACOB Calcium Carbonate (Calcium Carbonate 750 Mg Tab.Chew) 750 mg PO Q4H PRN PRN Reason: Heartburn Enoxaparin Sodium (Enoxaparin Sodium 40 Mg/0.4 Ml Syringe) 40 mg SUBCUT Q24H [facility] Guaifenesin/Dextromethorphan (Guaifenesin Dm 200/20/10 Ml 10 Ml Syrup) 10 ml PO Q6H PRN PRN Reason: Cough Hydromorphone HCl (Hydromorphone Hcl 0.5 Mg/0.5 Ml Syringe) 0.5 mg IVPUSH ONCE PRN; Protocol PRN Reason: Pain, Severe (Pain Scale 7-10) Magnesium Hydroxide (Milk Of Magnesia 30 Ml Oral.Susp) 30 ml PO DAILY PRN PRN Reason: Constipation Last Admin: 12/13/24 11:07 Dose: 30 ml Documented By: RAZ Melatonin (Melatonin 3 Mg Tablet) 6 mg PO BEDTIME PRN PRN Reason: Insomnia Last Admin: 12/12/24 23:18 Dose: 6 mg Documented By: SOULEYMANE Methylprednisolone Sodium Succinate (Methylprednisolone Sod Succ 40 Mg/Ml Vial) 40 mg IVPUSH Q12H [facility] Last Admin: 12/13/24 07:04 Dose: 40 mg Documented By: ANURADHA Polyethylene Glycol (Polyethylene Glycol 3350 17 Gm Powd.Pack) 17 gm PO DAILY [facility] Last Admin: 12/13/24 07:04 Dose: 17 gm Documented By: ANURADHA Senna (Sennosides 8.6 Mg Tablet) 17.2 mg PO BEDTIME [facility] Last Admin: 12/12/24 23:17 Dose: 17.2 mg Documented By: SOULEYMANE Sodium Chloride (0.9 % Sodium Chloride Flush 3 Ml Syringe) 3 ml IVFLUSH QSHIFT [facility] Last Admin: 12/13/24 07:04 Dose: 3 ml Documented By: ANURADHA Labs 12/13/24 06:12 12/13/24 06:12 Labs: Laboratory Results - last 24 hr 12/12/24 12/12/24 12/13/24 16:49 17:38 06:12 MCV 88.2 MCH 31.2 MCHC 35.3 H RDW 12.7 Plt Count 194 MPV 9.7 Immature Gran % (Auto) 0.9 H Neut % (Auto) 90.3 H Lymph % (Auto) 5.3 L Coos % (Auto) 3.4 Eos % (Auto) 0.0 Baso % (Auto) 0.1 Lymph # (Auto) 0.6 L [place]os # (Auto) 0.4 Eos # (Auto) 0.0 Baso # (Auto) 0.0 Abs Immat Gran (auto) 0.10 H Absolute Neuts (auto) 10.0 H Absolute Nucleated RBC 0.000 Nucleated RBC % (auto) 0.0 Smear Tech's Comments VERIFIED VBG pH 7.42 7.42 VBG pCO2 27 26 VBG pO2 83 123 VBG HCO3 18 L 17 L VBG O2 Saturation 98.0 100.0 VBG Base Excess -4.6 -4.9 Anion Gap 13 Estim Creat Clear Calc 76.6 Estimated GFR > 60 Random Glucose 154 H Calcium 9.4 Magnesium 2.0 Urine Color Urine Appearance Urine pH Ur Specific Boyd Urine Protein Urine Glucose (UA) Urine Ketones Urine Blood Urine Nitrite Ur Leukocyte Esterase Urine RBC Urine WBC Ur Squamous Epith Cells Urine Bacteria Hyaline Casts 12/13/24 07:13 MCV MCH MCHC RDW Plt Count MPV Immature Gran % (Auto) Neut % (Auto) Lymph % (Auto) Coos % (Auto) Eos % (Auto) Baso % (Auto) Lymph # (Auto) Coos # (Auto) Eos # (Auto) Baso # (Auto) Abs Immat Gran (auto) Absolute Neuts (auto) Absolute Nucleated RBC Nucleated RBC % (auto) Smear Tech's Comments VBG pH VBG pCO2 VBG pO2 VBG HCO3 VBG O2 Saturation VBG Base Excess Anion Gap Estim Creat Clear Calc Estimated GFR Random Glucose Calcium Magnesium Urine Color Yellow Urine Appearance Clear Urine pH 7.0 Ur Specific Boyd 1.010 Urine Protein Negative Urine Glucose (UA) Negative Urine Ketones Negative Urine Blood Negative Urine Nitrite Negative Ur Leukocyte Esterase Trace H Urine RBC 0-2 Urine WBC 0-5 Ur Squamous Epith Cells 0-2 Urine Bacteria None Seen Hyaline Casts 0-2 Assessment and Plan (1) Asthma with exacerbation: Status: Acute (2) Constipation: Status: Acute Assessment and Plan: 69 y/o woman presents with: Acute asthma exacerbation secondary to COVID-19 infection. Airborne/contact precautions. Pulse oximetry. Supplemental O2 to keep O2 sats > 90%. Continue nebs and IV steroids. sob with minimal exceersion , repiratory status slightly improving Left lower quadrant pain upon coughing thought to be possibly musculoskeletal in nature and/or associated to constipation: ua negative on Pain control with Dilaudid as needed,tylenol ,lidocaine patch. Milk of magnesia, Senokot and MiraLax. Code status: Full DVT prophylaxis: Lovenox ongoing need treat asthma exacerbation/covid that persists despite adequate treatment; she will need bronchodilator therapy every 4 hours and IV steroids.repiratory status not optimal yet. Quality Stroke Does the patient have a stroke diagnosis?: No VTE Prior VTE?: No VTE Risk Level:: Medical - moderate - high VTE Device Contraindication: Treatment Not Indicated VTE Drug Contraindication: N/A - Med Ordered
[2024-12-13] MEDS: Lidocaine 4 % Patch ADH..PATCH 1 PATCH TRANSDERMA (15:57)
[2024-12-13 16:48] LABS: Procalcitonin 0.06 ng/mL
[2024-12-13] MEDS: guaiFENesin DM 200/20/10 ML 10 ML SYRUP PO (21:31)
[2024-12-14] VITALS (8 sets, daily range): BP systolic 102–125; BP diastolic 56–58; PULSE 71–96; RESP 16–20; TEMP 36.2–36.8; O2SAT 94–97
[2024-12-14] MEDS: Albuterol/Iprat 2.5/0.5MG 3 ML AMPUL.NEB INHALE ×4 (07:17→20:37)
[2024-12-14] MEDS: 0.9 % Sodium Chloride Flush 3 ML SYRINGE IVFLUSH ×3 (08:43→20:50)
[2024-12-14] MEDS: Lidocaine 4 % Patch ADH..PATCH 1 PATCH TRANSDERMA (08:44)
--- NOTE | 2024-12-14 18:40 | HO.PM.IMPN ---
Subjective Subjective Date of Service: 12/14/24 Interval History: Asthma/COVID Review of Systems sob improving but still sob with execersion has some cough nonproductive has constipation Review of Systems: Yes all other systems are reviewed and are negative Physical Exam Exam: Exam: Appearance: Alert.? Oriented X3.? . cvs: rrr, [id number] . res: air entry improving ,b/l exp wheezing abd: no rebound or guarding ,nt, bs present. ext pulses present , no cyanosis . neuro: axo3 , nonfocal. Vital Signs: Vital Signs: Last Vital Signs Temp 97.7 F 12/14/24 15:57 Pulse 92 12/14/24 15:57 Resp 18 12/14/24 15:57 BP 102/58 L 12/14/24 15:57 Pulse Ox 95 12/14/24 15:57 O2 Del Method Room Air 12/14/24 15:57 BMI result Body Mass Index 31.7 Objective Data Active Medications Acetaminophen (Acetaminophen 325 Mg Tablet) 975 mg PO Q6H PRN PRN Reason: Pain, Mild 1-3,fever,headache Last Admin: 12/14/24 08:44 Dose: 975 mg Documented By: RAZ Albuterol Sulfate (Albuterol Sulfate (0.083%) 2.5 Mg/3 Ml Vial.Neb) 2.5 mg INHALE Q2H PRN PRN Reason: Shortness of Breath/Wheezing Last Admin: 12/12/24 23:00 Dose: 2.5 mg Documented By: SOULEYMANE Albuterol/Ipratropium (Albuterol/Iprat 2.5/0.5mg 3 Ml Ampul.Neb) 3 ml INHALE RQ4H WHILE AWAKE [facility] Last Admin: 12/14/24 15:14 Dose: 3 ml Documented By: NATALIA Calcium Carbonate (Calcium Carbonate 750 Mg Tab.Chew) 750 mg PO Q4H PRN PRN Reason: Heartburn Enoxaparin Sodium (Enoxaparin Sodium 40 Mg/0.4 Ml Syringe) 40 mg SUBCUT Q24H [facility] Last Admin: 12/13/24 21:24 Dose: 40 mg Documented By: NELSON Guaifenesin/Dextromethorphan (Guaifenesin Dm 200/20/10 Ml 10 Ml Syrup) 10 ml PO Q6H PRN PRN Reason: Cough Last Admin: 12/13/24 21:31 Dose: 10 ml Documented By: NELSON Hydromorphone HCl (Hydromorphone Hcl 0.5 Mg/0.5 Ml Syringe) 0.5 mg IVPUSH ONCE PRN; Protocol PRN Reason: Pain, Severe (Pain Scale 7-10) Lidocaine (Lidocaine 4 % Patch Adh..Patch) 1 patch TRANSDERMA DAILY [facility]; Protocol Last Admin: 12/14/24 08:44 Dose: 1 patch Documented By: RAZ Magnesium Hydroxide (Milk Of Magnesia 30 Ml Oral.Susp) 30 ml PO DAILY PRN PRN Reason: Constipation Last Admin: 12/13/24 11:07 Dose: 30 ml Documented By: RAZ Melatonin (Melatonin 3 Mg Tablet) 6 mg PO BEDTIME PRN PRN Reason: Insomnia Last Admin: 12/13/24 21:29 Dose: 6 mg Documented By: NELSON Methylprednisolone Sodium Succinate (Methylprednisolone Sod Succ 40 Mg/Ml Vial) 40 mg IVPUSH Q12H [facility] Last Admin: 12/14/24 08:43 Dose: 40 mg Documented By: RAZ Polyethylene Glycol (Polyethylene Glycol 3350 17 Gm Powd.Pack) 17 gm PO DAILY [facility] Last Admin: 12/14/24 08:44 Dose: 17 gm Documented By: RAZ Senna (Sennosides 8.6 Mg Tablet) 17.2 mg PO BEDTIME [facility] Last Admin: 12/13/24 21:24 Dose: 17.2 mg Documented By: NELSON Sodium Chloride (0.9 % Sodium Chloride Flush 3 Ml Syringe) 3 ml IVFLUSH QSHIFT [facility] Last Admin: 12/14/24 16:47 Dose: 3 ml Documented By: RAZ Labs 12/13/24 06:12 12/13/24 06:12 Assessment and Plan (1) Asthma with exacerbation: Status: Acute (2) Constipation: Status: Acute Assessment and Plan: 69 y/o woman presents with: Acute asthma exacerbation secondary to COVID-19 infection. Airborne/contact precautions. Pulse oximetry. Supplemental O2 to keep O2 sats > 90%. Continue nebs and IV steroids. sob with minimal exceersion , repiratory status slightly improving Left lower quadrant pain upon coughing thought to be possibly musculoskeletal in nature and/or associated to constipation: ua negative on Pain control with Dilaudid as needed,tylenol ,lidocaine patch. Milk of magnesia, Senokot and MiraLax. Code status: Full DVT prophylaxis: Lovenox ongoing need treat asthma exacerbation/covid that persists despite adequate treatment; she will need bronchodilator therapy every 4 hours and IV steroids.repiratory status not optimal yet. Quality Stroke Does the patient have a stroke diagnosis?: No VTE Prior VTE?: No VTE Risk Level:: Medical - moderate - high VTE Device Contraindication: Treatment Not Indicated VTE Drug Contraindication: N/A - Med Ordered
[2024-12-14] MEDS: guaiFENesin DM 200/20/10 ML 10 ML SYRUP PO (21:34)
[2024-12-15] VITALS (8 sets, daily range): BP systolic 100–132; BP diastolic 58–81; PULSE 70–93; RESP 16–20; TEMP 36.1–36.8; O2SAT 93–96
[2024-12-15] MEDS: 0.9 % Sodium Chloride Flush 3 ML SYRINGE IVFLUSH ×3 (07:29→21:15)
[2024-12-15] MEDS: Lidocaine 4 % Patch ADH..PATCH 1 PATCH TRANSDERMA (07:29)
[2024-12-15] MEDS: Albuterol/Iprat 2.5/0.5MG 3 ML AMPUL.NEB INHALE ×4 (08:51→20:05)
--- NOTE | 2024-12-15 16:33 | MHC.CM.PN ---
PT NOT YET MEDICALLY CLEARED, PT RECOMMENDING HOME SERVICES, HOWEVER PT DOES NOT HAVE A PCP DCP: RETURN TO [facility] ? OUTPATIENT PT
--- NOTE | 2024-12-15 16:34 | P.PNIM_ITS ---
Subjective Subjective Date of Service: 12/15/24 Interval History: Asthma/COVID Review of Systems sob improving but still sob with execersion has some cough nonproductive has constipation Review of Systems: Yes all other systems are reviewed and are negative Physical Exam 2 Exam: Exam: Appearance: Alert.? Oriented X3.? . cvs: rrr, [id number] . res: air entry improving ,b/l exp wheezing abd: no rebound or guarding ,nt, bs present. ext pulses present , no cyanosis . neuro: axo3 , nonfocal. Vital Signs: Vital Signs: Last Vital Signs Temp 98.3 F 12/15/24 15:53 Pulse 89 12/15/24 15:55 Resp 18 12/15/24 15:55 BP 100/58 L 12/15/24 15:53 Pulse Ox 96 12/15/24 15:53 O2 Del Method Room Air 12/15/24 15:53 BMI result Body Mass Index 31.7 Objective Data Active Medications Acetaminophen (Acetaminophen 325 Mg Tablet) 975 mg PO Q6H PRN PRN Reason: Pain, Mild 1-3,fever,headache Last Admin: 12/15/24 07:29 Dose: 975 mg Documented By: RAZ Albuterol Sulfate (Albuterol Sulfate (0.083%) 2.5 Mg/3 Ml Vial.Neb) 2.5 mg INHALE Q2H PRN PRN Reason: Shortness of Breath/Wheezing Last Admin: 12/12/24 23:00 Dose: 2.5 mg Documented By: SOULEYMANE Albuterol/Ipratropium (Albuterol/Iprat 2.5/0.5mg 3 Ml Ampul.Neb) 3 ml INHALE RQ4H WHILE AWAKE [facility] Last Admin: 12/15/24 15:53 Dose: 3 ml Documented By: [place] Azithromycin (Azithromycin 500 Mg Tablet) 500 mg PO Q24H [facility] Last Admin: 12/15/24 10:32 Dose: 500 mg Documented By: RAZ Benzonatate (Benzonatate 100 Mg Capsule) 100 mg PO TID PRN PRN Reason: Cough Calcium Carbonate (Calcium Carbonate 750 Mg Tab.Chew) 750 mg PO Q4H PRN PRN Reason: Heartburn Fluticasone/Vilanterol (Fluticasone/Vilanterol 100/25 Blst.W.Dev) 1 puff INHALE RDAILY [facility] Guaifenesin (Guaifenesin 200 Mg/10 Ml 10 Ml Liquid) 10 ml PO Q4H PRN PRN Reason: Cough Guaifenesin/Dextromethorphan (Guaifenesin Dm 200/20/10 Ml 10 Ml Syrup) 10 ml PO Q6H PRN PRN Reason: Cough Last Admin: 12/14/24 21:34 Dose: 10 ml Documented By: CARMENCITA Hydromorphone HCl (Hydromorphone Hcl 0.5 Mg/0.5 Ml Syringe) 0.5 mg IVPUSH ONCE PRN; Protocol PRN Reason: Pain, Severe (Pain Scale 7-10) Lidocaine (Lidocaine 4 % Patch Adh..Patch) 1 patch TRANSDERMA DAILY [facility]; Protocol Last Admin: 12/15/24 07:29 Dose: 1 patch Documented By: RAZ Magnesium Hydroxide (Milk Of Magnesia 30 Ml Oral.Susp) 30 ml PO DAILY PRN PRN Reason: Constipation Last Admin: 12/13/24 11:07 Dose: 30 ml Documented By: RAZ Melatonin (Melatonin 3 Mg Tablet) 6 mg PO BEDTIME PRN PRN Reason: Insomnia Last Admin: 12/14/24 21:34 Dose: 6 mg Documented By: CARMENCITA Polyethylene Glycol (Polyethylene Glycol 3350 17 Gm Powd.Pack) 17 gm PO DAILY [facility] Last Admin: 12/15/24 07:29 Dose: 17 gm Documented By: RAZ Prednisone (Prednisone 20 Mg Tablet) 40 mg PO DAILY [facility] Last Admin: 12/15/24 10:32 Dose: 40 mg Documented By: RAZ Senna (Sennosides 8.6 Mg Tablet) 17.2 mg PO BEDTIME [facility] Last Admin: 12/14/24 20:49 Dose: 17.2 mg Documented By: CARMENCITA Sodium Chloride (0.9 % Sodium Chloride Flush 3 Ml Syringe) 3 ml IVFLUSH QSHIFT [facility] Last Admin: 12/15/24 07:29 Dose: 3 ml Documented By: RAZ Labs 12/13/24 06:12 12/13/24 06:12 Assessment and Plan (1) Asthma with exacerbation: Status: Acute (2) Constipation: Status: Acute Assessment and Plan: 69 y/o woman presents with: Acute asthma exacerbation secondary to COVID-19 infection. Airborne/contact precautions. Pulse oximetry. Supplemental O2 to keep O2 sats > 90%. Continue nebs and IV steroids. sob with minimal exceersion , repiratory status slightly improving Left lower quadrant pain upon coughing thought to be possibly musculoskeletal in nature and/or associated to constipation: ua negative on Pain control with Dilaudid as needed,tylenol ,lidocaine patch. Milk of magnesia, Senokot and MiraLax. 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 Code status: Full DVT prophylaxis: Lovenox ongoing need treat asthma exacerbation/covid that persists despite adequate treatment; she will need bronchodilator therapy every 4 hours and IV steroids.repiratory status not optimal yet. Quality Stroke Does the patient have a stroke diagnosis?: No VTE Prior VTE?: No VTE Risk Level:: Medical - moderate - high VTE Device Contraindication: Treatment Not Indicated VTE Drug Contraindication: N/A - Med Ordered
[2024-12-15] MEDS: guaiFENesin 200 MG/10 ML 10 ML LIQUID PO (21:15)
[2024-12-16 03:51] VITALS: BP 116/60; PULSE 86; RESP 18; TEMP 36.1; O2SAT 94
[2024-12-16 07:36] VITALS: BP 129/56; PULSE 102; RESP 20; TEMP 36.8; O2SAT 95
[2024-12-16] MEDS: Albuterol/Iprat 2.5/0.5MG 3 ML AMPUL.NEB INHALE (08:01)
[2024-12-16 08:02] VITALS: PULSE 102; RESP 20; O2SAT 95
[2024-12-16] MEDS: Lidocaine 4 % Patch ADH..PATCH 1 PATCH TRANSDERMA (08:21)
[2024-12-16] MEDS: 0.9 % Sodium Chloride Flush 3 ML SYRINGE IVFLUSH (08:27)
[2024-12-16] MEDS: Butalb/Acetamin/Caff 50/325/40 TABLET 1 TAB PO (08:35)
--- NOTE | 2024-12-16 09:49 | W.MHC.F2F ---
Service Date Service Date: 12/16/24 Reasons for Services Homebound: Leaving the home is medically contraindicated at this time without the asist of a device and/or another person due th the listed conditions above and below. Certification: Based on the above findings, I certify that this patient is confined to the home and needs intermittent custodial care, physical therapy and/or speech therapy, or continues to need occupational therapy. The patient is under my care, and I have initiated the establishment of the plan of care. The patient will be followed by a physician who will periodically review the plan of care. Time Spent With Patient Time: Total time managing care of this patient today ____ minutes.
--- NOTE | 2024-12-16 10:14 | P.DS_ITS ---
DS: Providers Provider Date of Service: 12/16/24 Date of admission: 12/12/24 18:26 Date of discharge: 12/16/24 Primary care physician: None Physician Attending physician on discharge: Michael Vasquez Discharging clinician: Michael Vasquez DS: Diagnosis Discharge Diagnosis (1) Asthma with exacerbation: Status: Acute (2) Constipation: Status: Acute DS: Summary Hospital Course Hospital Course: HPI: 69 years old woman with past medical history significant for asthma presents to the emergency department complaining of shortness of breath, nonproductive cough and wheezing over the last couple of days. She also complained of headache and sore throat. She also reported a left lower quadrant abdominal pain that occurs upon coughing and constipation. Her roommate has been having the same symptoms. Her symptoms did not improve after using her home inhalers. In the ED, she was found to have tachypnea and tachycardia. Oxygen saturation is 90% on room air. Blood workup showed no leukocytosis. Hemoglobin and platelets are normal. Last venous gas showed normal pH and pCO2 26. HC03 is 17. There are no electrolyte imbalances. Renal function and LFTs are normal. Troponin is 3.5 and BNP 27. Viral testing is positive for COVID-19. CXR showed probable chronic interstitial lung disease; superimposed acute small airway inflammatory process can not be excluded. ED tx: APAP 975 mg p.o., magnesium 2 g IV, Solu-Medrol 125 mg IV, Xopenex 3.5 mg/ipratropium bromide 1.0 mg total, guaifenesin 2 mL p.o. Hospital course: Acute asthma exacerbation secondary to COVID-19 infection. Chest x-ray changes might be due to COVID, in addition had productive cough so possible have component of bronchitis superimposed: Patient was given nebs, steroids, antibiotics patient seems to be improved. Walking fine, sats are also fine in 92 range with walking even. Currently asymptomatic. Left lower quadrant pain upon coughing thought to be possibly musculoskeletal in nature and/or associated to constipation: UA negative, pain resolved after passing bowels. Continue lidocaine patch. Laxatives p.r.n.. 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 Currently asymptomatic headache is resolved, neurologically nonfocal. Added limited Fioricet supply, follow up with PCP for further management outpatient. plan: Prednisone taper as prescribed. Azithromycin 250 daily for 4 more days. Continue Robitussin/benzonatate p.r.n. as needed For cough. Fioricet limited supply as above. Follow up with PCP outpatient. If any new symptoms worsening shortness of breath or fever ; go to nearest emergency room . Patient was strongly encouraged for getting a PCP appointment, as per the case management given info. Above management discussed with the patient in detail length, she understand and in agreement with the above plan, time spent 40 minute, all questions answered, staff was present during conversation. Time Attestation Total time managing care of this patient today: 40 mintues. Discharge Coordination Time (in mins): 40 min Quality: Safe Use of Opioids Does Pt have an Active Cancer Diagnosis on the Problem List?: No Quality: Stroke Does the patient have a stroke diagnosis?: No Physical Exam Exam: Exam: Appearance: Alert.? Oriented X3.? . cvs: rrr, [id number] . res: air entry fine , no rales or wheezing abd: no rebound or guarding ,nt, bs present. ext pulses present , no cyanosis . neuro: axo3 , nonfocal. Vital Signs: Vital Signs: Last Vital Signs Temp 98.3 F 12/16/24 07:36 Pulse 102 H 12/16/24 08:02 Resp 20 12/16/24 08:02 BP 129/56 L 12/16/24 07:36 Pulse Ox 95 12/16/24 07:36 O2 Del Method Room Air 12/16/24 07:36 BMI result Body Mass Index 31.7 DS: Data Imaging Chest x-ray: Radiologist's impression: ITS Impressions Chest X-Ray 12/12/24 11:30 IMPRESSION: Probable chronic interstitial lung disease. Superimposed acute small airway inflammatory process cannot be excluded. Head CT 12/15/24 09:51 IMPRESSION: No acute intracranial abnormality. 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 Discharge Plan Discharge Anticipated Discharge Date/Time: 12/16/24 09:38 Patient Disposition: Home, Self-Care Discharge Diagnosis: Asthma exacerbation, acute bronchitis,constipation . Referrals: Physician,None [Primary Care Provider, Medical] - 1 Week Discharge Medications: New azithromycin 500 mg Tablet 250 mg PO Q24H Qty: 2 0RF fluticasone furoate-vilanterol [Breo Ellipta] 100-25 mcg/dose Blister With Device 1 inh inhalation RDAILY Qty: 1 0RF lidocaine [Lidocaine Pain Relief] 4 % Adhesive Patch,Medicated 1 patch transdermal DAILY Qty: 10 0RF Protocol: Apply to: Apply to: affected area melatonin 3 mg Tablet 6 mg PO BEDTIME PRN (Reason: Insomnia) Qty: 20 0RF guaifenesin 100 mg/5 mL Liquid 100 mg PO Q4H PRN (Reason: Cough) Qty: 100 0RF myttbouaoy-jvftcdxrxsfaa-jdiy 50-325-40 mg Tablet 1 tab PO Q4H PRN (Reason: Headache) Qty: 10 0RF benzonatate 100 mg Capsule 100 mg PO TID PRN (Reason: Cough) Qty: 30 0RF docusate sodium [Colace] 100 mg capsule 100 mg PO BID PRN (Reason: constipation) Qty: 30 0RF bisacodyl [Dulcolax (bisacodyl)] 5 mg tablet,delayed release (DR/EC) 10 mg PO BEDTIME PRN (Reason: constipation) 2 Days Qty: 20 0RF prednisone 10 mg tablet See Taper PO DIRECTED Qty: 30 0RF Taper: Prednisone 40 mg daily for 3 Days and 0 Hour 30 mg daily for 3 Days and 0 Hour 20 mg daily for 3 Days and 0 Hour 10 mg daily for 3 Days and 0 Hour Rx Instructions: see taper instructions Continued albuterol sulfate 90 mcg/actuation HFA aerosol inhaler 2 puff inhalation Q4H PRN (Reason: shortness of breath or wheezing) Discharge Orders: Discharge Order (Routine); Ordered 12/16/24 Ordered By: Michael Vasquez Diet: Advance to usual diet Activity on Discharge: As tolerated Stand Alone Forms: Patient Portal Discharge page, Work/School Release Print Language: Bolivian Care Plan Goals: Asthma exacerbation/constipation/bronchitis. Health Concerns: As above. Plan of Treatment: Prednisone taper as prescribed. Azithromycin 250 daily for 4 more days. Continue Robitussin/benzonatate p.r.n. as needed For cough. Fioricet limited supply as above. Follow up with PCP outpatient. If any new symptoms worsening shortness of breath or fever ; go to nearest emergency room . Patient was strongly encouraged for getting a PCP appointment, as per the case management given info. Assessment: as above. Patient Instructions: Asthma (DC), Constipation (DC), Acute Bronchitis (ED), COVID-19 (Coronavirus Disease 2019) (DC) Discharge Date/Time: 12/16/24 11:23
--- NOTE | 2024-12-16 10:54 | MHC.CM.PN ---
Second IMM, Pt. has been medically cleared to DC, she will go home via [facility] shuttle, CM reinforced to pt. to call for new PCP, pt. agreed and said she has brochure that was given on admission.
--- NOTE | 2024-12-16 13:40 | P.CDIM_ITS ---
PROVIDER RESPONSE TEXT: To clarify, the appropriate diagnosis supported by the clinical indicators: Mild intermittent QUERY TEXT: PHYSICIAN'S DOCUMENTATION REQUEST Date of Query: 12/16/2024 07:31 AM EDT Patient Name: Mireya Walter Admit Date: 12/12/2024 Dear Michael Vasquez MD, A review of the medical record indicates additional documentation may be needed. Please review below and update the documentation accordingly. Clinical indicators: Progress note 12/15/24 - Plan: Acute asthma exacerbation. Continue nebs and IV steroids. SOB with minimal exertion, respiratory status improving. Based on the above, please clarify in the Progress Notes further specificity regarding the type of asthma: Mild intermittent Mild persistent Moderate persistent Severe persistent Exercise induced Other (explain) Clinically unable to determine (explain) Thank you, Kathie Myers, CCS, CDIS Use of terms such as suspected, likely, concern for, or probable (associated with a specific diagnosis that is being evaluated, monitored, or treated as if it exists) are acceptable and can be coded in the inpatient setting, when documented at the time of discharge. Please use your independent medical judgment in providing your response. THIS QUERY IS PART OF THE PERMANENT MEDICAL RECORD
== END 2024-12-16 11:23 | disposition home or self-care (01) | DRG 178 ==
LOC: HO.ED 18:42 → HO.EDOVER 18:42 → HO.IMC 12-13 07:45
PROVIDERS: Physician Assistant; Admitting Provider Internal Medicine; Emergency Provider Emergency Medicine Emergency Medical Services; Visit Provider Internal Medicine
DX: U07.1 COVID-19 (principal); J45.21 Mild intermittent asthma with (acute) exacerbation; F17.210 Nicotine dependence, cigarettes, uncomplicated; K59.00 Constipation, unspecified; Z71.6 Tobacco abuse counseling; Z79.899 Other long term (current) drug therapy
CPT/HCPCS: 36415; 70450; 71045; 80048; 80053; 81001; 82803; 83735; 83880; 84145; 84484; 85025; 87637; 93005; 94640; 97162; 99285; J1171; J1650; J2919; J3475

== ENCOUNTER → 2024-12-12 12:15 | Outpatient (BNV) | payer MEDICARE, MEDICAID, SELFPAY | PROVIDERS: Admitting Provider Internal Medicine; Emergency Provider Emergency Medicine Emergency Medical Services; Visit Provider Internal Medicine Cardiovascular Disease | DX: R00.0 Tachycardia, unspecified (principal) | CPT/HCPCS: 93010 ==

== ENCOUNTER 2024-12-12 18:26 | Outpatient (BNV) | payer MEDICARE, MEDICAID, SELFPAY | END 2024-12-15 09:51 | PROVIDERS: Admitting Provider Internal Medicine; Emergency Provider Emergency Medicine Emergency Medical Services; Visit Provider Radiology Diagnostic Radiology | DX: G44.52 New daily persistent headache (NDPH) (principal) | CPT/HCPCS: 70450 ==

== ENCOUNTER → 2024-12-12 18:26 | Outpatient (BNV) | payer MEDICARE, MEDICAID, SELFPAY | PROVIDERS: Admitting Provider Internal Medicine; Emergency Provider Emergency Medicine Emergency Medical Services; Visit Provider Internal Medicine | DX: J45.51 Severe persistent asthma with (acute) exacerbation (principal); K59.00 Constipation, unspecified | CPT/HCPCS: 99223; 99231; 99232; 99239 ==

== ENCOUNTER 2025-02-18 10:18 | Outpatient (REF) | payer MEDICARE, MEDICAID, SELFPAY ==
--- OUTSIDE RECORDS SUMMARY | 2025-02-18 09:00 | XMS_ITS | Encounter Summary ---
Author Organization [employer] Address [address] [facility] [address] [place] [address] Care Team Providers Care Roof Panel Hanger Name Role Phone Duarte Gonzalezupe RESEARCH AND DEVELOPMENT MANAGER Primary Care Provider Reason for Visit * Reason Comments new pt Encounter Details Date Type Department Care Team ([facility] st Contact Info) Description 02/18/2025 9:00 AM EDT Office Visit [facility]INE [address] [place] [address] Angy Gonzalez FNP [address] [place] [address] Adult wellness visit (Primary Dx) Social History Tobacco Use Types Packs/Day Years Used Date Smoking Tobacco: Every Day Cigarettes Smokeless Tobacco: Never Tobacco Cessation:Ready to Q uit: Not Asked; Counseling Given: Not Answered Comments:1 pack a week Alcohol Use Standard Drinks/Week Comments Not Asked 0 (1 standard drink = 0.6 oz pur e alcohol) sober 1 yr and 4 mnths Housing Stability Answer Date Recorded What is your housing situation today? I have meaghan chew 02/18/[address] you li ve. Do you have problems with any of the following? Not on file 02/18/2025 Food Insecurity Answer Date Recorded Within the past 12 months, y ou worried that your food would run out before you got money to buy more: Sometimes True 2024 Within the past 12 months,th e food you bought just didn't last and you didn't have enough money to get more: Sometimes True 02/18/2025 Transportation Answer Date Recorded In the past 12 months, has l ack of transportation kept you from medical appts, meetings, work or from getting things needed for daily living? No 02/18/2025 Utilities Answer Date Recorded In the past 12 months, has t he electric, gas, oil or water company threatened to shut off services in your home? No 02/18/2025 Internet Access Answer Date Recorded Internet Access Q1 Yes 02/18/2025 Internet Access Q2 Not on file 02/18/2025 Comments No Sex and Gender Information Value Date Recorded Sex Assigned at Female 03/20/2022 7:06 PM EDT Legal Sex Female 7:06 PM EDT Gender Identity Female 03/20/2022 7:06 PM EDT Sexual Orientation Straight 03/20/2022 7: 06 PM EDT documented as of this encounter Last Filed Vital Signs Vital Sign Reading Time Taken Comments Blood Pressure 130/90 02/18/2025 9:12 AM EDT Pulse 92 02/18/2025 9:12 AM EDT Temperature 36.6 C (97.8 F) 02/18/2025 9:12 AM EDT Respiratory Rate 20 02/18/2025 9:12 AM EDT Oxygen Saturation - - Inhaled Oxygen Concentration - - Weight 79.9 kg (176 lb 3.2 oz) 02/18/2025 9:12 A M EDT Height 160 cm (5' 3 ) 02/18/2025 9:12 AM EDT Body Mass Index 31.21 02/18/2025 9:12 AM EDT documented in this encounter Functional Status * Trouble falling or staying asleep, or sleeping too much Answer Date of Assessment Author Nearly every day 02/18/2025 10:12 AM EDT Tiarra Hernadez MA * Feeling tired or having little energy Answer Date of Assessment Author Nearly every day 02/18/2025 10:12 AM EDT Tiarra Hernadez MA * Poor appetite or overeating Answer Date of Assessment Author More than half the days 02/18/2025 10:12 AM EDT Tiarra Hernadez MA * Feeling bad about yourself - or that you are a failure or have let yourself or your family down Answer Date of Assessment Author Nearly every day 02/18/2025 10:12 AM EDT Tiarra Hernadez MA * Trouble concentrating on things, such as reading the newspaper or watching television Answer Date of Assessment Author Nearly every day 02/18/2025 10:12 AM EDT Tiarra Hernadez MA * Moving or speaking so slowly that other people could have noticed? Or the opposite - being so fidgety or restless that you have been moving around a lot more than usual. Answer Date of Assessment Author Several days 02/18/2025 10:12 AM EDT Tiarra Hernadez MA * Thoughts that you would be better off or hurting yourself in some way Answer Date of Assessment Author Not at all 02/18/2025 10:12 AM EDT Tiarra Hernadez MA * Over the last 2 weeks, how often have you been bothered by any of the following problems? Question Answer Date of Assessment Author Feeling nervous, anxious, or on edge 3 02/18/2025 10:13 AM EDT Tiarra Hernadez MA Not being able to stop or co ntrol worrying 3 02/18/2025 10:13 AM EDT Tiarra Hernadez MA Worrying too much about diff erent things 3 02/18/2025 10:13 AM EDT Tiarra Hernadez MA Trouble relaxing 3 02/18/2025 10:13 AM EDT Tiarra Hernadez MA Being so restless that it is hard to sit still 3 02/18/2025 10:13 AM EDT Tiarra Hernadez MA Becoming easily annoyed or irritable 3 02/18/2025 10:13 AM EDT Tiarra Hernadez MA Feeling afraid as if somethi ng awful might happen 3 02/18/2025 10:13 AM EDT Tiarra Hernadez MA HALLEY-7 Total Score 21 02/18/2025 10:13 AM EDT Tiarra Hernadez MA documented as of this encounter Plan of Treatment Upcoming Encounters Date Type Department Care Team (Late st Contact Info) Description 03/05/2025 9:00 AM EDT Office Visit [facility] [address] [place] [address] Angy Gonzalez FNP [address] [place] [address] Scheduled Orders Name Type Priority Associated Diagnoses Orde r Schedule Comprehensive Metabolic Panel Lab Routine Adult wellness visit Expected: 02/18/2025 (Approximate), Expires: 02/17/2026 Hepatitis B Core Antibody, Total Lab Routine Adult wellness visit Expected: 02/18/2025 (Approximate), Expires: 02/17/2026 TSH Lab Routine Adult wellness visit Expected: 02/18/2025 (Approximate), Expires: 02/17/2026 Hepatitis B Surface Antibody, Qualitative Lab Routine Adult wellness visit Expected: 02/18/2025 (Approximate), Expires: 02/17/2026 Hepatitis B surface antigen, EIA Lab Routine Adult wellness visit Expected: 02/18/2025 (Approximate), Expires: 02/17/2026 Hepatitis C Antibody with Reflex to HCV, RNA, Quantitative, Real-Time PCR Lab Routine Adult wellness visit Expected: 02/18/2025, Expires: 02/17/2026 CBC auto differential Lab Routine Adult wellness visit Expected: 02/18/2025 (Approximate), Expires: 02/17/2026 HIV-1/2 Antigen and Antibodies, Fourth Generation, with Reflexes Lab Routine Adult wellness visit Expected: 02/18/2025 (Approximate), Expires: 02/17/2026 Lipid Panel, Standard Lab Routine Adult wellness visit Expected: 02/18/2025 (Approximate), Expires: 02/17/2026 documented as of this encounter Visit Diagnoses Diagnosis Adult wellness visit- Primary documented in this encounter Care Teams Roof Panel Hanger Relationship Specialty Start Date End Date Angy Gonzalez FNP [address] [place] [id number] PCP - General Family Medicine 02/18/25 documented as of this encounter
--- OUTSIDE RECORDS SUMMARY | 2025-02-18 11:34 | XMS_ITS | Clinical Summary ---
Author Organization [employer] Address [address] [facility] [address] [place] [id number] Care Team Providers Care Funeral Driver Name Role Phone Angy Gonzalez Primary Care Provider [phone] Allergies No known active allergies Medications * This document contains information received from the source organization and may not represent a complete record from that organization. polyethylene glycol, PEG, 3350 (MiraLax) 17 GM/SCOOP powder Mix 17 gm /1 scoop with liquid and take as needed daily for constipation 527 g 2 5 Active Blood Pressure kit 1 Units 2 times daily. 1 kit 5 Active docusate sodium (Colace) 100 MG capsule Take 1 tab as needed daily for constipation 30 capsule 5 Active albuterol 108 (90 Base) MCG/ACT inhaler Inhale 2 puffs every 4 (four) hours if needed for wheezing. 18 g 5 02/19/20 26 Active fluticasone (Flonase) 50 MCG/ACT nasal spray Administer 1 spray into each nostril Once per day. Shake gently. Before first use, prime pump. After use, clean tip and replace cap. 16 g 2 5 02/19/20 26 Active Active Problems Problem Noted Date Diagnosed Date Septic joint of right wrist (CMS/HCC) 09/16/2024 Systemic lupus erythematosus (CMS/HCC) 6 Essential hypertension 05/06/2015 Idiopathic gout 05/06/2015 Mixed hyperlipidemia 05/06/2015 Tobacco user 05/06/2015 Encounters Date Type Department Care Team Description 02/18/2025 9:00 AM EDT Office Visit [facility] [address] [place] [address] Angy Gonzalez FNP Adult wellness visit (Primary Dx) 02/18/2025 Travel 02/11/2025 Patient Outreach [facility] [address] [place] [address] Michael Ramirez CNP Pre-visit Planning (SDOH unable to reach LVM ) 01/13/2025 Patient Outreach [facility] [address] [place] [address] Michael Ramirez CNP Pre-visit Planning (SDOH unable to reach, disconnected) from Last 3 Months Family History Medical History Relation Name Comments Colon cancer Brother Diabetes Daughter Pancreatic cancer Sister Relation Name Status Comments Brother Daughter Sister Social History Tobacco Use Types Packs/Day [...] Orientation Straight 03/20/2022 7: 06 PM EDT Last Filed Vital Signs Vital Sign Reading [...] Mass Index 31.21 02/18/2025 9:12 AM EDT Plan of Treatment Upcoming Encounters Date Type Department Care Team (Late st Contact Info) Description 03/05/2025 9:00 AM EDT Office Visit [facility] MED[facility] [address] [place], [place] [phone] Angy Gonzalez FNP [address] [place] [address] Health Maintenance Due Date Last Done Comments CT Colonography 1955 Colonoscopy 1955 Colorectal Cancer Screening 1955 Depression Screening 1955 FIT DNA/Cologuard 1955 FIT 1955 FOBT 1955 Lipid Panel 1955 SDOH Screening 1955 Sigmoidoscopy 1955 Hepatitis C Screening 1973 DTaP/Tdap/Td Vaccines (1 - Tdap) 1974 Pneumococcal Vaccine: 50+ Ye ars (1 of 2 - PCV) 1974 Mammogram 1995 Zoster Vaccines (1 of 2) 2005 COVID-19 Vaccine (1 - 2023-2 5 season) 2025 Influenza Vaccine (#1) 2025 Alcohol/Substance Use Screening 02/18/2026 Tobacco Screening 02/18/2026 02/18/2025 RSV Patients and Pa tients Aged 60 years or older (1 - 1-dose 75+ series) 2030 HIB Vaccines Aged Out No longer eligi [...] patient's age to complete this topic Meningococcal Vaccine Aged Out No selena kermit eligible based on patient's age to complete this topic RSV under 20 months Aged Out No longe r eligible based on patient's age to complete this topic Rotavirus Vaccines Aged Out No longer eligible based on patient's age to complete this topic Insurance [facility] Care Teams Funeral Driver Relationship Specialty Start Date End Date Angy Gonzalez FNP [address] [place] [address] PCP - General Family Medicine 02/18/25
--- OUTSIDE RECORDS SUMMARY | 2025-02-18 11:34 | XMS_ITS | Encounter Summary ---
Author Organization [employer] Address [address] [facility] [address] [place] [address] Care Team Providers Care Pmp Project Manager Name Role Phone Angy Gonzalez [facility] Primary Care Provider [phone] Encounter Details Date Type Department Care Team (Latest Contact Info) Description 02/18/2025 Travel Social History Tobacco Use Types Packs/Day Years Used Date Smoking Tobacco: Every Day Cigarettes Smokeless Tobacco: Never Comments:1 pack a week Alcohol Use Standard [...] PM EDT documented as of this encounter Functional Status * Trouble falling [...] Assessment Author Several days 02/18/2025 10:12 AM Tiarra Ac MA * Thoughts that you would be better off or hurting yourself in some way Answer Date of Assessment Author Not at all 02/18/2025 10:12 AM Tiarra Ac MA * Over the last 2 weeks, how often have you been bothered by any of the following problems? Question Answer Date of Assessment Author Feeling nervous, anxious, or on edge 3 02/18/2025 10:13 AM Tiarra Ac MA Not being able to stop or co ntrol worrying 3 02/18/2025 10:13 AM Tiarra Ac MA Worrying too much about diff erent things 3 02/18/2025 10:13 AM EDT Tiarra Hernadez MA Trouble relaxing 3 02/18/2025 10:13 AM AMAYAT Tiarra Hernadez MA Being so restless that [...] Description 03/05/2025 9:00 AM EDT Office Visit [facility] [address] [place] [address] Angy Gonzalez FNP [address] [place] [address] documented as of this encounter Visit Diagnoses Not on filedocumented in this encounter Care Teams Pmp Project Manager Relationship Specialty Start Date End Date Angy Gonzalez FNP [address] [place] [address] PCP - General Family Medicine 02/18/25 documented as of this encounter
--- OUTSIDE RECORDS SUMMARY | 2025-02-18 11:35 | XMS_ITS | Clinical Summary ---
Author Organization [facility] Address [address] [place] [address] Phone Care Team Providers Care Manager Resource Name Role Phone Physician, No Pcp Primary Care Provider Unavaila ble Allergies No known active allergies Medications albuterol HFA (Proventil HFA) 90 mcg/actuation inhaler Inhale 2 puffs by mouth every 4 (four) hours if needed for wheezing or shortness of breath. 6.7 g 5 09/18/19 26 Active Active Problems Problem Noted Date Diagnosed Date Septic joint of right wrist (CMS/HCC V24, CMS/HC C V28) 09/16/2024 Surgical History Surgery Date Site/Laterality Comments JOHN [...] Safety Answer Date Record ed Physical Abuse Unrecognized value 09/16/2024 Verbal Abuse Unrecognized value 09/16/2024 Comments Unknown Sex and Gender Information [...] Last Done Comments Breast Cancer Screening 1955 Colorectal Cancer Screening: Colonoscopy 1955 DTaP,Tdap,and Td Vaccines (1 - Tdap) 1974 Pneumococcal Vaccine: 50+ Ye ars (1 of 1 - PCV) 2005 Zoster Vaccines (1 of 2) 2005 Depression Screening 05/21/2024 Hepatitis C Screening 09/17/2024 Medicare Annual Wellness Visit 09/17/2024 Osteoporosis Screening (Bone Density Screening) 09/17/2024 Social Influencers of Health Screening 09/17/2024 COVID-19 Vaccine ( - 2023-2 5 season) 2025 Influenza Vaccine (#1) 2025 Falls Risk Assessment 09/17/2025 09/17/2024 RSV Immunization Adult Patie nts (1 - 1-dose 75+ series) 2030 HIB [...] patient's age to complete this topic Insurance MEDICARE MEDICAID - [place] Advance Directives [...] currently active code status orders. Care Teams Manager Resource Relationship Specialty Start Date End Date Physician, No Pcp PCP - General 09/16/24
== END 2025-02-18 10:19 | disposition home or self-care (01) ==
LOC: HO.HHCL 10:18
PROVIDERS: PCP Nurse Practitioner Family; Visit Provider Nurse Practitioner Family
DX: Z13.89 Encounter for screening for other disorder (principal)

== ENCOUNTER 2025-03-18 11:47 | Outpatient (REF) | payer MEDICARE, MEDICAID, SELFPAY ==
--- OUTSIDE RECORDS SUMMARY | 2025-03-18 11:00 | XMS_ITS | Encounter Summary ---
Author Organization [employer] Address [address] [facility] [address] [place] [address] Care Team Providers Care Superintendent Generating Plant Name Role Phone Angy Gonzalez Primary Care Provider [phone] Reason for Visit * Reason Comments Follow-up Encounter Details Date Type Department Care Team ([facility] Contact Info) Description 03/18/2025 11:00 AM EDT Office Visit [facility] [address] [place] [address] Angy Gonzalez FNP [address] [place] [address] Social History Tobacco Use Types Packs/Day Years Used Date Smoking Tobacco: Every Day Cigarettes Smokeless Tobacco: Never Comments:1 pack a week Alcohol Use Standard Drinks/Week Comments Not Currently [...] Sign Reading Time Taken Comments Blood Pressure 140/78 03/18/2025 10:59 AM EDT Pulse 80 03/18/2025 10:59 AM EDT Temperature 36.7 C (98 F) 03/18/2025 10:59 AM EDT Respiratory Rate 20 03/18/2025 10:59 AM EDT Oxygen Saturation - - Inhaled Oxygen Concentration - - Weight 80.6 kg (177 lb 9.6 oz) 03/18/2025 10:59 AM EDT Height 160 cm (5' 3 ) 03/18/2025 10:59 AM EDT Body Mass Index 31.46 03/18/2025 10:59 AM EDT documented in this encounter Plan of Treatment Not on file documented as of this encounter Visit Diagnoses Not on filedocumented in this encounter Care Teams Superintendent Generating Plant Relationship Specialty Start Date End Date Angy Gonzalez FNP [address] [place] [id number] PCP - General Family Medicine 02/18/25 documented as of this encounter
[2025-03-18 13:13] LABS: MANUAL DIFF FLAG NO
[2025-03-18 13:41] LABS: Hematocrit 42.4 % (37.0-47.0); Hemoglobin 13.8 g/dl (12.0-16.0); Imm Gran Abs Auto 0.01 X10*3/uL (0.00-0.03); Imm Gran Pct Auto 0.3 % (0.0-0.4); Lymphocytes Absolute Auto 1.9 X10*3/uL (1.2-4.9); Mean Corpuscular HGB Conc 32.5 g/dl (31.0-35.0); Mean Corpuscular Hemoglobin 30.8 pg (27.0-33.0); Mean Corpuscular Volume 94.6 fL (80.0-98.0); NRBC Abs Auto 0.000 X10*3/uL (0.0-0.012); NRBC Pct Auto 0.0 /100WBC (0.0-0.2); Platelet Count 248 X10*3/uL (160-400); Red Blood Count 4.48 X10*6/uL (4.20-5.50); White Blood Count 4.0 X10*3/uL (4.8-10.8)
[2025-03-18 13:58] LABS: Alanine Aminotransferase 20 U/L (0-31); Albumin Level 4.5 g/dL (3.5-5.0); Alkaline Phosphatase 84 U/L (39-117); Anion Gap 11 (12-20); Aspartate Amino Transferase 31 U/L (5-31); Blood Urea Nitrogen 10 mg/dL (9-16); Calcium 9.6 mg/dL (8.4-10.2); Carbon Dioxide 29 mmol/L (22-29); Chloride 109 mmol/L (96-108); Cholesterol 230 mg/dL (<200); Estimated Glomerular Filt Rate > 60; HDL Cholesterol 36 mg/dL (>40); Potassium 4.3 mmol/L (3.3-5.1); Sodium 145 mmol/L (135-145); Total Protein 7.4 g/dL (6.5-8.0); Triglycerides 252 mg/dL (<150)
[2025-03-18 14:00] LABS: Thyroid Stimulating Hormone 0.77 uIU/mL (0.32-4.0)
--- OUTSIDE RECORDS SUMMARY | 2025-03-18 15:08 | XMS_ITS | Clinical Summary ---
Author Organization [facility] Address [address] [place] [address] Phone Care Team Providers Care Investor Relations Associate Name Role Phone Physician, No Pcp Primary [...] currently active code status orders. Care Teams Investor Relations Associate Relationship Specialty Start Date End Date Physician, No Pcp PCP - General 09/16/24
--- OUTSIDE RECORDS SUMMARY | 2025-03-18 15:08 | XMS_ITS | Encounter Summary ---
Author Organization [employer] Address [address] [facility] [address] [place] [address] Care Team Providers Care Blender/Braze Applicator Name Role Phone Angy Gonzalez CAMP DIRECTOR Primary Care Provider [phone] Encounter Details Date Type Department Care Team (Latest Contact Info) Description 03/18/2025 Travel Social History Tobacco Use Types Packs/Day Years Used Date Smoking Tobacco: Every Day Cigarettes Smokeless Tobacco: Never Comments:1 pack a week Alcohol Use Standard Drinks/Week Comments Not Currently 0 (1 standard drink = 0.6 oz pur e alcohol) sober 1 yr and 4 mnths Housing Stability Answer Date Recorded What is your housing situation today? I have meaghan naian 02/18/[address] you li [...] PM EDT documented as of this encounter Plan of Treatment Not on file documented as of this encounter Visit Diagnoses Not on filedocumented in this encounter Care Teams Blender/Braze Applicator Relationship Specialty Start Date End Date Angy Gonzalez FNP [address] [place] [phone] PCP - General Family Medicine 02/18/25 documented as of this encounter
--- OUTSIDE RECORDS SUMMARY | 2025-03-18 15:08 | XMS_ITS | Clinical Summary ---
Author Organization [employer] Address [address] [facility] [address] [place] [address] Care Team Providers Care Collet Gluer Name Role Phone Angy Gonzalez MEMS DEVICE SCIENTIST Primary Care Provider [phone] Allergies No known active allergies Medications * This document contains information received from the source organization and may not represent a complete record from that organization. polyethylene glycol, PEG, 3350 (MiraLax) 17 GM/SCOOP powderIndication s:Constipation, unspecified constipation type Mix 17 gm /1 scoop with liquid and take as needed daily for constipation 527 g 2 5 Active Blood Pressure kitIndications:E ssential hypertension 1 Units 2 times daily. 1 kit 5 Active docusate sodium (Colace) 100 MG capsuleIndicatio ns:Constipation, unspecified constipation type Take 1 tab as needed daily for constipation 30 capsule 5 Active albuterol 108 (90 Base) MCG/ACT inhalerIndicatio ns:Mild persistent asthma without complication Inhale 2 puffs every 4 (four) hours if needed for wheezing. 18 g 5 026 Active fluticasone (Flonase) 50 MCG/ACT nasal sprayIndications :Mild persistent asthma without complication Administer 1 spray into each nostril Once per day. Shake gently. Before first use, prime pump. After use, clean tip and replace cap. 16 g 2 5 026 Active Active Problems Problem Noted Date Diagnosed Date Mild persistent asthma without complication 12/2024 Constipation 02/25/2025 Class 1 obesity with body ma ss index (BMI) of 31.0 to 31.9 in adult 02/25/2025 Septic joint of right wrist ([facility]/HCC) 09/16/2024 Systemic lupus erythematosus (CMS/HCC) 6 Essential hypertension 05/06/2015 Idiopathic gout 05/06/2015 Mixed hyperlipidemia 05/06/2015 Tobacco user 05/06/2015 Encounters Date Type Department Care Team Description 03/18/2025 11:00 AM EDT Office Visit [facility] [address] [place] [id number] Angy Gonzalez FNP 03/18/2025 Travel 02/20/2025 Telephone [facility] [address] [place] [address] Angy Gonzalez FNP Release form 02/18/2025 9:00 AM EDT Office Visit [address] [address] Angy Gonzalez FNP Adult wellness visit (Primary Dx); Dietary counseling; Exercise counseling; Essential hypertension; Mild persistent asthma without complication; Constipation, unspecified constipation type; Class 1 obesity with body mass index (BMI) of 31.0 to 31.9 in adult, unspecified obesity type, unspecified whether serious comorbidity present 02/18/2025 Travel 02/11/2025 Patient Outreach [facility] [address] [place] [address] Michael Ramirez CNP Pre-visit Planning (SDOH unable to reach [facility] ) 01/13/2025 Patient Outreach [facility] [address] [place] [address] Michael Ramirez CNP Pre-visit Planning (SDOH unable [...] Mass Index 31.46 03/18/2025 10:59 AM EDT Plan of Treatment Health Maintenance Due Date Last Done Comments CT Colonography 1955 Colonoscopy 1955 Colorectal Cancer Screening 1955 Depression Screening 1955 FIT DNA/Cologuard 1955 FIT 1955 FOBT 1955 Lipid Panel 1955 03/18/2025 SDOH Screening 1955 Sigmoidoscopy 1955 Hepatitis C Screening 1973 DTaP/Tdap/Td Vaccines (1 - Tdap) 1974 Pneumococcal Vaccine: 50+ Ye ars (1 of 2 - PCV) 1974 Mammogram 1995 Zoster Vaccines (1 of 2) 2005 RSV Patients and Pa tients Aged 60 years or older (1 - Risk 60-74 years 1-dose series) 2015 COVID-19 Vaccine (1 - 2023-2 5 season) 2025 Influenza Vaccine (#1) 2025 Alcohol/Substance Use Screening 02/18/2026 Tobacco Screening 03/18/2026 03/18/2025 HIB Vaccines Aged Out No longer eligi [...] Procedure Name Priority Date/Time Associated Diagnosis Comments LIPID PANEL, STANDARD Routine 03/18/2025 11:53 AM EDT Adult wellness visit CBC WITH AUTO DIFFERENTIAL Routine 03/18/2025 11:53 AM EDT Adult wellness visit TSH Routine 03/18/2025 11:53 AM EDT Adult wellness visit COMPREHENSIVE METABOLIC PANEL Routine 03/18/2025 11:53 AM EDT Adult wellness visit from Last 3 Months Results * (ABNORMAL) CBC auto differential (03/18/2025 11:53 AM EDT) White Blood Count 4.0(L) 4.8 - 10.8 X10*3/uL [facility] Red Blood Count 4.48 4.20 - 5.50 X10*6/uL [facility] Hemoglobin 13.8 12.0 - 16.0 g/dl [facility] Hematocrit 42.4 37.0 - 47.0 % [facility] Mean Corpuscular Volume 94.6 80.0 - 98.0 fL [facility] Mean Corpuscular Hemoglobin 30.8 27.0 - 33.0 pg [facility] Mean Corpuscular HGB Conc 32.5 31.0 - 35.0 g/dl [facility] Red Cell Distribution Width 12.9 11.0 - 16.0 % [facility] Platelet Count 248 160 - 400 X10*3/uL [facility] Mean Platelet Volume 10.0 9.4 - 12.3 fL [facility] Neutrophils Percent Auto 44.1(L) 45 - 73 % [facility] Imm Gran Pct Auto 0.3 0.0 - 0.4 % [facility] Lymphocytes Percent Auto 46.9(H) 20 - 40 % [facility] Monocytes Percent Auto 7.6 2 - 11 % [facility] Eosinophils Percent Auto 0.8 0 - 4 % [facility] Basophils Percent Auto 0.3 0 - 2 % [facility] NRBC Pct Auto 0.0 0.0 - 0.2 /100WBC [facility] Neutrophils Absolute Auto 1.8(L) 2.0 - 8.3 x10*3/uL [facility] Imm Gran Abs Auto 0.01 0.00 - 0.03 X10*3/uL [facility] Lymphocytes Absolute Auto 1.9 1.2 - 4.9 X10*3/uL [facility] Monocytes Absolute Auto 0.3 0.1 - 1.2 X10*3/uL [facility] Eosinophils Absolute Auto 0.0 0.0 - 0.4 X10*3/uL [facility] Basophils Absolute Auto 0.0 0.0 - 0.2 X10*3/uL [facility] NRBC Abs Auto 0.000 0.0 - 0.012 X10*3/uL [facility] Blood Venous blood specimen / Unknown 03/18/2025 11:53 AM EDT 03/18/2025 1:09 PM EDT [facility] LAB BLOOD ORDERABLES Final Res ult Performing Organization Address [facility]/ZIP Co de Phone Number [facility] [address] [place] [phone] * TSH (03/18/2025 11:53 AM EDT) Thyroid Stimulating Hormone 0.77 0.32 - 4.0 uIU/mL [facility] Comment:TSH 3rd Generation ( [facility] [facility] [employer]) Blood Venous blood specimen / Unknown 03/18/2025 11:53 AM EDT 03/18/2025 1:09 PM EDT [facility] LAB BLOOD ORDERABLES Final Res ult Performing Organization Address [facility]/ZIP Co de Phone Number [facility] [address] [place] [phone] * (ABNORMAL) Lipid Panel, Standard (03/18/2025 11:53 AM EDT) Triglycerides 252(H) <150 mg/dL [facility] Comment:Desirable Triglyceri de: less than 150 mg/dLBorderline High Triglyceride 150-199 mg/dLHigh Triglyceride: 200-499 mg/dLVery High Triglyceride: greater than or equal to 5OO mg/dL Cholesterol 230(H) <200 mg/dL [facility] Comment:Desirable Cholestero l: less than 200 mg/dLBorderline High Cholesterol: 200-239 mg/dLHigh Cholesterol: greater than 239 mg/dL LDL Cholesterol Calculated 144(H) <100 mg/dL [facility] Comment:Desirable LDL: less than 100 mg/dLNear Optimal/Above Optimal LDL: 110- 129 mg/dLBorderline High LDL: 130-159 mg/dLHigh LDL: 160-189 mg/dLVery High LDL: greater than or equal to 190 mg/dL HDL Cholesterol 36(L) >40 mg/dL [facility] Comment:Desirable HDL: great er than 40 mg/dL Note: This HDL assay may give artificially low results in patients with liver disease. Blood Venous blood specimen / Unknown 03/18/2025 11:53 AM EDT 03/18/2025 1:09 PM EDT Angy Okloly MEMS DEVICE SCIENTIST LAB BLOOD ORDERABLES Final Res ult [facility] [address] [place] [phone] * (ABNORMAL) Comprehensive Metabolic Panel (03/18/2025 11:53 AM EDT) Sodium 145 135 - 145 mmol/L [facility] Potassium 4.3 3.3 - 5.1 mmol/L [facility] Chloride 109(H) 96 - 108 mmol/L [facility] Carbon Dioxide 29 22 - 29 mmol/L [facility] Anion Gap 11(L) 12 - 20 [facility] Urea Nitrogen (BUN) 10 9 - 16 mg/dL [facility] Creatinine, Serum 0.70 0.5 - 1.4 mg/dL [facility] Estimated Glomerular Filt Rate >60 [facility] Comment:Chronic Kidney Disea se: Estimated GFR < 60 mL/min/[id number] Kidney Disease: Estimated GFR < 15 mL/min/1.73m2 Glucose 93 60 - 115 mg/dL [facility] Calcium 9.6 8.4 - 10.2 mg/dL [facility] Bilirubin, Total 0.5 0.0 - 1.0 mg/dL [facility] Aspartate Amino Transferase 31 5 - 31 U/L [facility] Alanine Aminotransferase 20 0 - 31 U/L [facility] Total Protein 7.4 6.5 - 8.0 g/dL [facility] Albumin Level 4.5 3.5 - 5.0 g/dL [facility] Alkaline Phosphatase 84 39 - 117 U/L [facility] Blood Venous blood specimen / Unknown 03/18/2025 11:53 AM EDT 03/18/2025 1:09 PM EDT us Angytessy Gonzalez MEMS DEVICE SCIENTIST LAB BLOOD ORDERABLES Final Res ult [facility] [address] [place] [phone] from Last 3 Months Insurance [facility] STANDARD Care Teams Collet Gluer Relationship Specialty Start Date End Date Angy Gonzalez FNP [address] [place] [phone] PCP - General Family Medicine 02/18/25
[2025-03-19 04:35] LABS: HBS Num1 0.00 mIU/mL (0-7.99); HBc Num1 0.11 S/CO (0.00-0.79); HBsAGNum1 0.35 S/CO (0.00-0.99); HIV Num 1 0.06 S/CO (0.00-0.99); Hepatitis B Surface Antigen Negative (Negative); ~HepC Num1 0.13 S/CO (0.00-0.79); ~Hepatitis B Surface Antibody NONREACTIVE (Nonreactive); ~Hepatitis C Antibody Nonreactive (Nonreactive)
== END 2025-03-18 11:48 | disposition home or self-care (01) ==
LOC: HO.HHCL 11:47
PROVIDERS: PCP Nurse Practitioner Family; Visit Provider Nurse Practitioner Family
DX: Z00.00 Encounter for general adult medical examination without abnormal findings (principal); Z13.6 Encounter for screening for cardiovascular disorders; Z11.4 Encounter for screening for human immunodeficiency virus [HIV]; Z13.29 Encounter for screening for other suspected endocrine disorder; Z13.0 Encounter for screening for diseases of the blood and blood-forming organs and certain disorders involving the immune mechanism
CPT/HCPCS: 36415; 80053; 80061; 84443; 85025; 86704; 86706; 86803; 87340; 87389